=== PATIENT | male | born 1965 | race Caucasian/White ===

== ENCOUNTER 2021-09-11 23:55 | Inpatient (IN) | payer MEDICAID, SELFPAY ==
[2021-09-12] VITALS (18 sets, daily range): BP systolic 121–231; BP diastolic 71–106; PULSE 70–100; RESP 13–22; TEMP 36.4–36.6; O2SAT 92–100; BMI 38.3
--- NOTE | 2021-09-12 00:10 | ECG_ITS ---
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
--- NOTE | 2021-09-12 00:10 | XRR_ITS ---
PROCEDURE INFORMATION: Exam: XR Chest Exam date and time: 09/12/2021 12:10 AM Age: 55 years old Clinical indication: Sternal or substernal pain; Additional info: Cp TECHNIQUE: Imaging protocol: XR of the chest. Views: 1 view. COMPARISON: CR Chest 2 views* [id number] 05/24/2015 2:06 PM FINDINGS: Lungs: Lungs are clear. Pleural spaces: There is no pleural effusion or pneumothorax. Heart/Mediastinum: The cardiac silhouette is within normal limits of size given AP technique. Bones/joints: Bones are unremarkable. XR/XR chest 1V portable [id number] IMPRESSION: No acute findings.
[2021-09-12] MEDS: aspirin 81 mg Chew Tablet 324 MG PO (00:39)
[2021-09-12] MEDS: ondansetron 2 mg/ML SDV 2 mL 4 MG IVP ×2 (00:40→09:16)
[2021-09-12] MEDS: morphine 4 mg/mL SDV 1 mL IVP (00:47)
[2021-09-12 00:53] LABS: Basophils % 0.3 %; Eosinophils # 0.2 10^3/uL (0.0-0.8); Eosinophils % 1.8 %; Hematocrit 43.6 % (42.0-52.0); Hemoglobin 14.6 g/dL (11.7-16.6); Lymphocytes % 32.4 %; Mean Corpuscular HGB Conc 33.5 g/dL (30.0-36.0); Mean Corpuscular Hemoglobin 29.4 pg (28.0-34.0); Mean Corpuscular Volume 87.7 fl (80-94); Monocytes # 0.9 10^3/uL (0.2-0.9); Monocytes % 9.3 %; Neutrophils # 5.23 10^3/uL (1.8-7.7); Neutrophils % 55.9 %; Nucleated Red Blood Cells % 0 %; Platelet Count 181 10^3/cmm (130-400); Red Blood Count 4.97 10^6/uL (4.1-5.3); Red Cell Distribution Width 12.2 % (12.1-15.1); White Blood Count 9.4 10^3/uL (4.0-10.0)
[2021-09-12] MEDS: nitroglycerin 0.4 mg sublingual Tablet SUBLINGUAL ×4 (00:56→19:25)
[2021-09-12 01:10] LABS: INR 0.92 (0.8-1.2)
[2021-09-12 01:11] LABS: Partial Thromboplastin Time 24.5 SECONDS (23.9-36.7)
[2021-09-12 01:17] LABS: Troponin(5th) Baseline 23 ng/L (0-15)
[2021-09-12 01:27] LABS: Alanine Aminotransferase 32 U/L (0-41); Albumin Level 4.5 g/dL (3.5-5.2); Alkaline Phosphatase 74 IU/L (40-130); Aspartate Amino Transferase 22 U/L (0-40); Blood Urea Nitrogen 13 mg/dL (6-20); Calcium 9.1 mg/dL (8.5-10.5); Carbon Dioxide 21 mmol/L (22-29); Chloride 98 mmol/L (98-107); Creatine Phosphokinase 208 U/L (39-308); Globulin 2.5 g/dL (1.3-4.6); Glomerular Filtration Rate 100.7 mL/min (90-130); Glucose 209 mg/dL (65-115); NT Pro B Type Natriuretic Pept 21 pg/mL (0-125); Osmolality Calculated 286 mOsm/kg (285-295); Sodium 135 mmol/L (136-145); Total Bilirubin 0.2 mg/dL (0.15-1.2)
--- NOTE | 2021-09-12 02:10 | ECG_ITS ---
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
--- NOTE | 2021-09-12 02:32 | ED_ITS ---
HPI - Chest Pain General: Chief Complaint: Chest Pain Stated Complaint: High Blood Pressure\Zoning Out Time Seen by Provider: 09/12/21 00:09 History of Present Illness: HPI narrative: 55-year-old gentleman with hypertension. He states that he has had chest pain radiating to his jaws on and off for a couple of days. His blood pressure has been high. He has been trying to manage by taking his blood pressure medication somewhat early which seems to help the pain to some degree. He denies fever. He denies significant shortness of breath. No vomiting. No cough. MD complaint: chest pain Pertinent past history: other Onset (ago): day(s) Timing of current episode: episodic Prior episodes: Yes Onset: during rest Pain location: substernal Pain radiation: jaw/teeth Quality: tightness and aching Exacerbating factors: nothing Associated symptoms: Deny abdominal pain, diaphoresis, dyspnea, fever(s), leg edema, palpitations or vomiting Treatment prior to arrival: other Review of Systems Const: Denies: fever(s) or diaphoresis Eyes: Denies: change in vision Card: Reports: chest pain; Denies: palpitations Resp: Denies: dyspnea GI: Denies: abdominal pain or vomiting Neuro: Denies: headache(s) or confusion PFSH ED PFSH: Medical History Essential (primary) hypertension Family History Mother Dementia Grandfather Dementia Cancer Father Heart disease Social History Smoking and tobacco status: never smoked Alcohol intake: former Adopted: No service: No History of recent travel: No Current gender identity: Male Physical Exam Const: COMMON NORMALS: no acute distress, patient oriented x3 and alert GENERAL APPEARANCE: not ill appearing HENMT: COMMON NORMALS: normocephalic HEAD & SCALP: normocephalic Eye: COMMON NORMALS: Equal, round and reactive pupils present and EOMs intact bilaterally PUPIL: Yes Equal, round and reactive pupils present Chest: COMMONS NORMALS: normal inspection of the chest Resp: COMMON NORMALS: normal respiratory effort, No use of accessory muscles and clear to auscultation bilaterally AUSCULTATION: clear to auscultation bilaterally Cardio: COMMON NORMALS: regular rate, regular rhythm and No murmurs present (Cardio) RATE: regular rate RHYTHM: regular rhythm GI: COMMON NORMALS: Normal to inspection, nondistended, normoactive bowel sounds present, Soft to palpation and non-tender PALPATION: Yes Soft to palpation Neuro: COMMON NORMALS: patient oriented x3 SENSORIUM/ORIENTATION: Yes alert Course Consultations: Consultation #1: [email or web address] Time: 03:37 Vital Signs: Vital signs: Vital Signs Pulse Rate 76 09/12/21 03:40 Respiratory Rate 14 09/12/21 03:40 Blood Pressure 155/97 09/12/21 03:40 Pulse Oximetry 95 09/12/21 03:40 MDM - Chest Pain MDM Narrative: Medical decision making narrative: EKG shows a normal sinus rhythm with normal axis. Rate is 80. Normal intervals no ST changes. Chest x- ray is negative. Hemoglobin 14.6. White blood cell count 9.4. His initial blood pressure was 220s systolic. He was given nitroglycerin, which both improved his pain, to essentially resolution, and lowered his blood pressure. He was also given amlodipine. His blood pressure currently is 154/96. First troponin is mildly elevated awaiting a second. Second troponin is elevated as well. Delta is 29. He will be observed for he remained stable. Lab Data: Labs: Lab Results 09/12/21 09/12/21 09/12/21 00:40 00:40 00:40 WBC 9.4 10^3/uL 10^3/ uL (4.0-10.0) RBC 4.97 10^6/uL 10^6 /uL (4.1-5.3) Hgb 14.6 g/dL g/dL (11.7-16.6) Hct 43.6 % % (42.0-52.0) MCV 87.7 fl fl (80-94) MCH 29.4 pg pg (28.0-34.0) MCHC 33.5 g/dL g/dL (30.0-36.0) RDW 12.2 % % (12.1-15.1) Plt Count 181 10^3/cmm 10^3 /cmm (130-400) MPV 11.0 fL H fL (7.4-10.4) Neut % (Auto) 55.9 % % Lymph % (Auto) 32.4 % % [place] % (Auto) 9.3 % % Eos % (Auto) 1.8 % % Baso % (Auto) 0.3 % % Neut # (Auto) 5.23 10^3/uL 10^3 /uL (1.8-7.7) Lymph # (Auto) 3.0 10^3/uL 10^3/ uL (0.8-4.8) [place] # (Auto) 0.9 10^3/uL 10^3/ uL (0.2-0.9) Eos # (Auto) 0.2 10^3/uL 10^3/ uL (0.0-0.8) Baso # (Auto) 0.0 10^3/uL 10^3/ uL (0.0-0.1) Nucleated RBC % (a uto) 0 % % Nucleated RBCs # 0.0 /100WBC /100W BC PT INR APTT Sodium 135 mmol/L L mmol /L (136-145) Potassium 4.0 mmol/L mmol/L (3.5-5.1) Chloride 98 mmol/L mmol/L (98-107) Carbon Dioxide 21 mmol/L L mmol/ L (22-29) Anion Gap 20.0 H (5-19) BUN 13 mg/dL mg/dL (6-20) Creatinine 0.8 mg/dL mg/dL (0.7-1.2) GFR Calculation 100.7 mL/min mL/m in (90-130) Glucose 209 mg/dL H mg/dL (65-115) Calculated Osmolal ity 286 mOsm/kg mOsm/ kg (285-295) Calcium 9.1 mg/dL mg/dL (8.5-10.5) Total Bilirubin 0.2 mg/dL mg/dL (0.15-1.2) AST 22 U/L U/L (0-40) ALT 32 U/L U/L (0-41) Alkaline Phosphata se 74 IU/L IU/L (40-130) Creatine Kinase 208 U/L U/L (39-308) Troponin T Baselin e 23 ng/L H ng/L (0-15) Troponin T 120 Min [place] Delta Troponin T NT-Pro-B Natriuret Pep 21 pg/mL pg/mL (0-125) Total Protein 7.0 g/dL g/dL (6.6-8.7) Albumin 4.5 g/dL g/dL (3.5-5.2) Globulin 2.5 g/dL g/dL (1.3-4.6) 09/12/21 09/12/21 00:55 02:47 WBC RBC Hgb Hct MCV MCH MCHC RDW Plt Count MPV Neut % (Auto) Lymph % (Auto) [place] % (Auto) Eos % (Auto) Baso % (Auto) Neut # (Auto) Lymph # (Auto) [place] # (Auto) Eos # (Auto) Baso # (Auto) Nucleated RBC % (a uto) Nucleated RBCs # PT 12.60 SECONDS SEC ONDS (12.1-14.9) INR 0.92 (0.8-1.2) APTT 24.5 SECONDS SECO NDS (23.9-36.7) Sodium Potassium Chloride Carbon Dioxide Anion Gap BUN Creatinine GFR Calculation Glucose Calculated Osmolal ity Calcium Total Bilirubin AST ALT Alkaline Phosphata se Creatine Kinase Troponin T Baselin e Troponin T 120 Min [place] 52.67 ng/L H ng/L (0-15) Delta Troponin T 29.67 ABS# H* ABS # (0-10) NT-Pro-B Natriuret Pep Total Protein Albumin Globulin Discharge Plan Discharge Patient Disposition: Placed in Observation Admit Provider: Zainab Jessica Clinical Impression: Non-ST elevated myocardial infarction (non-STEMI) Chest pain Qualifiers: Chest pain type: unspecified Qualified Code(s): R07.9 - Chest pain, unspecified Coding Level of Care Code ED Wet Silk Hanger for g Fwd Exam Detailed
[2021-09-12] MEDS: amlodipine 10 mg Tablet PO (02:48)
[2021-09-12 03:15] LABS: Troponin 5 2HR 52.67 ng/L (0-15)
[2021-09-12 03:18] LABS: Troponin 5 2HR Delta 29.67 ABS# (0-10)
[2021-09-12] MEDS: nitroglycerin 1 gm/inch oint Pkt 2 INCH TOPICAL (03:59)
[2021-09-12] MEDS: clopidogrel 300 mg Tablet PO (04:22)
[2021-09-12] MEDS: enoxaparin 100 mg/mL Syringe SUBCUT (04:22)
--- NOTE | 2021-09-12 05:20 | USCV_ITS ---
Miguelito Crespo Age: 55 Gender: M : 1965 Exam Date: 09/12/2021 06:44 Ordering Phys: Zainab Jessica MD Technologist: [place] [facility] [place]: nstemi BP: 123 / 61 HR: 70 Rhythm: Sinus Technical Quality: Adequate MEASUREMENTS (Male / Female) Normal Values 2D ECHO LV Diastolic Diameter PLAX 4.4 cm 4.2 - 5.9 / 3.9 - 5.3 cm LV Systolic Diameter PLAX 2.5 cm IVS Diastolic Thickness 1.1 cm 0.6 - 1.0 / 0.6 - 0.9 cm IVS Systolic Thickness 1.7 cm LVPW Diastolic Thickness 1.5 cm 0.6 - 1.0 / 0.6 - 0.9 cm LVPW Systolic Thickness 1.8 cm LVOT Diameter 2.0 cm LV Ejection Fraction 2D Teich 75.1 % LV Ejection Fraction MOD 2C 66.0 % LV Ejection Fraction 2C AL 65.9 % LA Diameter 4.2 cm LA Width 4.5 cm LA Height 4.9 cm RA Width 3.5 cm RA Height 5.1 cm M-MODE Aortic Annulus Diameter 3.2 cm LA Ao Ratio MM 1.4 MV E Point Septal Separation 0.8 cm DOPPLER AV Peak Velocity 144.0 cm/s LVOT Peak Velocity 115.0 cm/s AV Area Cont Eq vti 2.5 cm squared AV Area Cont Eq pk 2.5 cm squared MV Area PHT 5.0 cm squared Mitral E to A Ratio 0.9 MV E' Velocity 33.5 cm/s Mitral E to MV E' Ratio 8.0 Mitral E to LV E' Lateral Ratio 7.1 Mitral E to LV E' Septal Ratio 9.1 TR Peak Velocity 189.0 cm/s TR Peak Gradient 14.3 mmHg TV Peak E Velocity 101.0 cm/s Right Atrial Pressure 3.0 mmHg Pulmonary Artery Systolic Pressu 17.3 mmHg FINDINGS Left Ventricle Normal left ventricular cavity size. Normal left ventricular wall thickness. Normal left ventricular systolic function. Left ventricular ejection fraction is estimated at 55 %. Mild hypokinesis of basal inferolateral and basal to mid anterolateral and apical lateral multani. Normal diastolic function. Right Ventricle Normal right ventricular size and systolic function, RVSP 17.3 mmHg. Right Atrium Normal right atrial size. Left Atrium Normal left atrial size. Mitral Valve Mildly thickened mitral valve. No mitral valve stenosis. Mild mitral valve regurgitation. Aortic Valve Structurally normal trileaflet aortic valve. No aortic valve stenosis. No aortic valve regurgitation. Tricuspid Valve Structurally normal tricuspid valve. No tricuspid valve stenosis. Trace tricuspid valve regurgitation. Pulmonic Valve Pulmonic valve not well visualized. No pulmonary valve stenosis. Trace pulmonary valve regurgitation. Pericardium No pericardial effusion. Aorta Normal-sized aortic root. Normal-sized inferior vena cava. CONCLUSIONS 1. Normal left ventricular cavity size. Normal left ventricular wall thickness. Normal left ventricular systolic function. Left ventricular ejection fraction is estimated at 55 %. Mild hypokinesis of basal inferolateral and basal to mid anterolateral and apical lateral multani. Normal diastolic function. 2. Normal pulmonary artery pressure. 3. Mild mitral valve regurgitation. 4. No prior similar studies to compare. Germaine Parekh MD (Electronically Signed) Final Date: 12 September 2021 11:57 S
[2021-09-12 05:56] LABS: Chol HDL Ratio 6.59 mg/dL (1.0-5.00); Cholesterol 270 mg/dL (0-200); HDL Cholesterol 41 mg/dL (60-100); Triglycerides 553 mg/dL (0-150)
[2021-09-12 06:05] LABS: Estmated Average Glucose 169; Hemoglobin A1C 7.5 % (4.0-6.0)
[2021-09-12 06:12] LABS: LDL Cholesterol Direct 145 mg/dL (0-100)
--- NOTE | 2021-09-12 06:46 | P.HP_ITS ---
Providers/Chief Complaint Admitting Physician: Zainab Jessica MD Chief Complaint: High Blood Pressure\Zoning Out History of Present Illness Miguelito Crespo is a 55 year old male with a past medical history of hypertension, states it is been uncontrolled on occasions of stress in the past. Presenting today with chief complaints of chest pain. Patient states that he has been experiencing chest discomfort radiating into the right side of his jaw and teeth going back at least for about a month now. Usually symptoms would come on when exerting such as climbing up stairs etc. It would also be associated with dyspnea. However stopping and resting would take care of the symptoms. Presents to the ER today as he developed similar symptoms last night with chest pain in the center and right side of his chest radiating into his j aw. When pain did not subside he presented into the ER. Currently had a nitro patch on following which his pain was relieved. Blood pressure upon admission was additionally 230 systolic, received amlodipine 10 mg after which at the time of my assessment blood pressure is 160/70 mmHg. He takes lisinopril at home and has been compliant with his medications. He is unaware if he has ever been scr eened for diabetes or dyslipidemia. EKG today is with sinus rhythm at [address]-T wave changes. Baseline troponin elevated at 23, 2-hour delta at 29.6. Chest x-ray clear. Denies any recent URI symptoms. Unvaccinated for COVID-19. Review of Systems General: Reports: 10 or more systems reviewed and unremarkable except in HPI and below Const: Denies: fever(s), chills or body aches Eyes: Denies: change in vision, blurry vision or photophobia ENMT: Reports: hoarseness; Denies: throat pain, enlarged tonsils, odynophagia or nasal congestion Card: Denies: chest pain, palpitations, irregular heart rhythm, edema, swelling of feet/ankles, lightheadedness, pre-syncope, dyspnea on exertion or orthopnea Resp: Denies: dyspnea, productive cough, non-productive cough, wheezing, stridor, pain on inspiration, change in phlegm color, hemoptysis or chest congestion GI: Denies: abdominal pain, nausea, vomiting, hematemesis, coffee ground emesis, dysphagia, heartburn, diarrhea, constipation, GI cramping, change in stool character, hematochezia or melena : Denies: flank pain, dysuria, urinary frequency, urinary urgency, urinary hesitancy or hematuria Musc: Denies: neck pain, back pain, extremity pain, joint swelling, joint warmth or deformity Neuro: Denies: headache(s), numbness in extremities, weakness in extremities, sensory changes, difficulty walking, frequent falls, dizziness, vertigo, behavioral changes, Slurred speech present or seizure-like activity Psych: Denies: anxiety, depression, suicidal ideation or homicidal ideation Endo: Denies: polyuria, polydipsia, tired all the time, cold intolerance or hot flashes Idris/Lymph: Denies: easy bruising or easy bleeding Medications/Allergies Home Medications Medication Instructions Recorded Confirmed Last Taken Type melatonin 5 mg capsule mg PO .at bedtime cap 10/25/20 04/25/21 Unknown History meloxicam 15 mg tablet 15 mg PO DAILY #90 tab 10/25/20 04/25/21 Unknown Rx montelukast 10 mg tablet 10 mg PO DAILY #90 tab 10/25/20 04/25/21 Unknown Rx multivitamin,ta-zxwl-nivrifka 1 tab PO DAILY 10/25/20 04/25/21 Unknown History omeprazole 20 mg tablet,delayed 20 mg PO DAILY #90 tab 10/25/20 04/25/21 Unknown Rx release triamcinolone acetonide 0.5 % 1 applic TOPICAL DAILY #15 g 10/25/20 04/25/21 Unknown Rx topical cream lisinopril 20 mg tablet 40 mg PO DAILY #180 tab 04/25/21 04/25/21 Unknown Rx Allergies Allergy/AdvReac Type Severity Reaction Status Date / Time Penicillins Allergy Unknown Verified 04/25/21 12:57 PFSH Acute PFSH: Medical History (Updated 09/12/21 @ 06:50 by Zainab Jessica MD) Essential (primary) hypertension Hepatitis C Surgical History (Updated 09/12/21 @ 06:50 by Zainab Jessica MD) H/O vasectomy History of cholecystectomy Family History Mother Dementia Grandfather Dementia Cancer Father Heart disease Social History Smoking and tobacco status: never smoked Alcohol intake: former Adopted: No service: No History of recent travel: No Current gender identity: Male Vitals/I&O/Wt Last Vital Signs Pulse 76 09/12/21 03:40 Resp 14 09/12/21 03:40 BP 155/97 09/12/21 03:40 Pulse Ox 95 09/12/21 03:40 Weight last 48 hrs Weight 111.13 kg Physical Exam Narrative: EXAM NARRATIVE: General: No acute distress, AO x3 HEENT: PERRLA, pupils bilaterally equal and reactive, pallors not present Chest: Normal vesicular breath sounds, no added sounds, equal good air entry bilaterally CVS: S1-S2 regular, no murmurs, no tachycardia, no gallops, no rubs Abdomen: Soft, nontender, no organomegaly, bowel sounds present Neuro: No focal deficits, no facial deformity, AO x3, power 5/5 in all limbs Extremities: No edema clubbing or cyanosis Data : 09/12/21 00:40 09/12/21 00:40 A&P Assessment and plan (1) Chest pain: Status: Acute Qualifiers: Chest pain type: unspecified Qualified Code(s): R07.9 - Chest pain, unspecified (2) Non-ST elevated myocardial infarction (non-STEMI): Status: Acute (3) Essential (primary) hypertension: Status: Acute Additional A&P Information Presenting today with chest pain radiating into jaw EKG without acute ST-T wave changes, elevated troponin baseline at 23, 2-hour delta at 29.67. Overall picture concerning for NSTEMI. Awaiting 6-hour troponin at this time. Alternately troponin elevation may be related to high blood pressure upon arrival Systolic blood pressure 230 upon admission, currently has a nitro patch on along with having received amlodipine 10 mg following which currently systolic blood pressure is ranging between 1 50-1 60. Chest pain is relieved after placement of Nitropatch at this time. He has received 1 mg/kg dose of Lovenox x1 for NSTEMI currently, will continue if troponin continues to trend up. Add on HbA1c and lipid panel testing to labs already obtained. Further orders based on 6-hour troponin trend and above pending labs. Obtain echocardiogram. Attestations Medical Necessity Statement*: Observation admission, currently anticipate less than 2 midnight stay Coding Level of Care Code Acute Park Maintainer for [facility] Diagnoses Chest pain R07.9 Chest pain type: unspecified Non-ST elevated myocardial infarction (non-STEMI) I21.4 Essential (primary) hypertension I10
[2021-09-12 08:01] LABS: Troponin 5 6HR 135.3 ng/L (0-15); Troponin 5 6HR Delta 112.3 ng/L (0-12)
--- NOTE | 2021-09-12 08:59 | P.PN_ITS ---
Subjective Subjective: Interval history: Miguelito is a 55-year-old white male who gave history of chest discomfort, occasionally exertional over the last month with worsening to where he came into the emergency department secondary to persistent discomfort this morning. See history and physical done earlier. This was reviewed. Medications: Reviewed: Yes Vitals/I&O/Wt Last Vital Signs Temp 97.5 F L 09/12/21 08:00 Pulse 82 09/12/21 08:00 Resp 17 09/12/21 08:00 BP 148/99 09/12/21 08:00 Pulse Ox 96 09/12/21 08:35 Weight last 48 hrs Weight 111.13 kg Physical Exam Narrative: EXAM NARRATIVE: General exam no distress mild chest discomfort substernal, described as an ache chest without radiation Neck supple no lymphadenopathy thyromegaly Cardiovascular regular rate and rhythm without murmur Lungs clear no wheezing or crackles Abdomen soft obese nontender Extremities no cyanosis clubbing or edema Data : 09/12/21 00:40 09/12/21 00:40 A&P Assessment and plan (1) Chest pain: Concerning for non-ST elevation myocardial infarction considering significant delta troponin, 6-hour delta troponin of 112 Patient has had recurrent discomfort. He is receiving some morphine and nitroglycerin now Continue nitroglycerin paste Consider nitroglycerin drip if discomfort continues he has received aspirin. Statin as ordered. Provide full dose Lovenox Echocardiogram Cardiology consult Consideration of loading with Plavix Check TSH N.p.o. currently in case pain continues and procedure as needed. Status: Acute Qualifiers: Chest pain type: unspecified Qualified Code(s): R07.9 - Chest pain, unspecified (2) Non-ST elevated myocardial infarction (non-STEMI): See above Status: Acute (3) Essential (primary) hypertension: Continue IVONNE inhibitor Consider addition of beta-bruno, low-dose. Will not add acutely as nitroglycerin drip may be needed. Blood pressure is reasonable currently. Note that he received a dose of Norvasc in the emergency department as well. Status: Acute Additional A&P Information Hyperglycemia. Hemoglobin A1c consistent with diabetes. Will need to consistent carb diet when 1 is started. Start mild sliding scale insulin. Attestations Medical Necessity Statement*: Needs continued monitoring in the hospital secondary to recurrent chest discomfort, elevated troponin. Coding Level of Care Code Acute Conservation Science Officer for Chg Fwd Diagnoses Chest pain R07.9 Chest pain type: unspecified Non-ST elevated myocardial infarction (non-STEMI) I21.4 Essential (primary) hypertension I10
--- NOTE | 2021-09-12 09:03 | PC.CHAP ---
Pastoral Care Encounter/Spiritual Assessment Type of Contact [] Declined copyright expert visit [] Patient/Family/Request visit [] Outpatient visit [] Follow-up visit [] Physician referral [] Code/Alert [x] Routine visit [] Staff referral [] Actively dying [] Patient sleeping [] Family support [] [] Out of room [] Palliative care [] [] Receiving care in room [] Pre-surgical visit [] Trauma [] Long length of stay [] ICU visit [] Other: Relational/Emotional Strength [] Patient feels connected with others/family/visitors/staff [] Distress [] Loneliness/isolation [] Abandonment Spirituality of Patient [] Person of Odette [] Attends Druze of their Odette [] Believes in Prayer [] Reads Bible or Baptist materials [] There are Spiritual issues to be addressed Soakers Supervisor Interventions [x] Prayer [x] Active listening [x] Non-anxious presence [x] Spiritual/emotional support [] Crisis/trauma care [] Spiritual counseling [] Bereavement support [] Provided bereavement packet [] Provided Bible/devotional materials [] Provided toy/stuffed animal, coloring book to patient or family member [] Provided Communion [] Anointing/[place] [] Salvation [x] Completed spiritual assessment [] Other: Impact on Illness or Injury [] Angry [] Fearful [] Anxious [] Often cries [] Exhaustion [] Unable to work [] Unable to attend mu-ism [] Unable to walk/stand [] Unable to read [] Unable to drive [] Unable to eat/drink [] Unable to sleep [] Unable to be with family [] Patient intubated [] Other: Summary patient wanting to sleep... tired Time spent with patient 5 min
[2021-09-12] MEDS: lisinopril 20 mg Tablet 40 MG PO (09:04)
[2021-09-12] MEDS: morphine 4 mg/mL SDV 1 mL 2 MG IVP ×2 (09:04→19:43)
[2021-09-12] MEDS: pantoprazole DR 40 mg Tablet PO (09:04)
--- NOTE | 2021-09-12 09:18 | ECG_ITS ---
[facility] Test Date: 2021-09-12 Pat Name: Miguelito Crespo Department: Room: 101 Gender: Male Paper Pattern Folder: : 1965 Requested By: Dm Hill Order Number: [id number] Mansi MD: CHRIS VIZCAINO Measurements Intervals [place] Rate: 65 P: 23 SC: 143 QRS: 10 QRSD: 105 T: 43 QT: 367 QTc: 382 Interpretive Statements SINUS RHYTHM INCOMPLETE RIGHT BUNDLE BRANCH BLOCK [90+ ms QRS DURATION, TERMINAL R IN V1/V2, 40+ ms S IN I/aVL/V4/V5/V6] Compared to ECG 09/12/2021 02:35:07 Incomplete right bundle-branch block now present Electronically Signed On 09-12-2021 19:04:47 BAR POINTER by CHRIS VIZCAINO [id number]
[2021-09-12 09:22] LABS: Thyroid Stimulating Hormone 3.78 uIU/mL (0.27-4.20)
--- NOTE | 2021-09-12 10:43 | P.CONIM_ITS ---
Providers/Reason For Consult Consulting Physician/Specialty*: Dr. Parekh, Cardiology Reason for Consult*: NSTEMI Attending Physician: Dm Lowery MD History of Present Illness History of Present Illness Miguelito Crespo is a 55 year old male with past medical history of hypertension, hepatitis C, tobacco abuse (chews 2 to 3 cans/week) and family history of coronary artery disease in father (PA in his 50s and history of bypass in his 70s). He presented with chest discomfort and on and off for last few days. Last night chest discomfort was retrosternal in location 10 and 10 in intensity and did not get relieved after taking aspirin lisinopril and Xanax that he uses as needed. He checked his blood pressure at home and it was running systolically over 200s. He complains of radiation of pain to his bilateral jaws denies any associated shortness of breath diaphoresis nausea or vomiting. He had a stress test several years ago. He received aspirin Plavix and therapeutic Lovenox x1 in the ER. His baseline troponin T increased from 23-1 35 at 6 hours. EKG showed sinus rhythm with normal axis and no significant ST-T wave changes on subsequent EKGs. Blood pressure at the time of evaluation is in normal range and patient is chest pain-free. Review of Systems 2 General: Reports: 10 or more systems reviewed and unremarkable except in HPI and below Const: Denies: fever(s), chills or body aches Eyes: Denies: change in vision, blurry vision or photophobia ENMT: Reports: hoarseness; Denies: throat pain, enlarged tonsils, odynophagia or nasal congestion Card: Denies: chest pain, palpitations, irregular heart rhythm, edema, swelling of feet/ankles, lightheadedness, pre-syncope, dyspnea on exertion or orthopnea Resp: Denies: dyspnea, productive cough, non-productive cough, wheezing, stridor, pain on inspiration, change in phlegm color, hemoptysis or chest congestion GI: Denies: abdominal pain, nausea, vomiting, hematemesis, coffee ground emesis, dysphagia, heartburn, diarrhea, constipation, GI cramping, change in stool character, hematochezia or melena : Denies: flank pain, dysuria, urinary frequency, urinary urgency, urinary hesitancy or hematuria Musc: Denies: neck pain, back pain, extremity pain, joint swelling, joint warmth or deformity Neuro: Denies: headache(s), numbness in extremities, weakness in extremities, sensory changes, difficulty walking, frequent falls, dizziness, vertigo, behavioral changes, Slurred speech present or seizure-like activity Psych: Denies: anxiety, depression, suicidal ideation or homicidal ideation Endo: Denies: polyuria, polydipsia, tired all the time, cold intolerance or hot flashes Idris/Lymph: Denies: easy bruising or easy bleeding Meds/Allergies Home Medications and Allergies Home Medications Medication Instructions Recorded Confirmed Last Taken Type melatonin 5 mg capsule 5 mg PO BEDTIME cap 10/25/20 09/12/21 Unknown History meloxicam 15 mg tablet 15 mg PO DAILY #90 tab 10/25/20 09/12/21 Unknown Rx acetaminophen [Tylenol Arthritis 650 mg PO Q12H PRN 09/12/21 09/12/21 Unknown History Pain] albuterol sulfate [ProAir HFA] 2 puff INHALATION QID PRN 09/12/21 09/12/21 Unknown History aspirin 325 mg PO PRN PRN 09/12/21 09/12/21 09/11/21 History glucosamine sulfate [Glucosamine] 500 mg PO DAILY 09/12/21 09/12/21 Unknown History lisinopril 40 mg PO BEDTIME 09/12/21 09/12/21 Unknown History lorazepam [Ativan] 0.5 mg PO DAILY PRN 09/12/21 09/12/21 Unknown History magnesium oxide 400 mg PO DAILY 09/12/21 09/12/21 Unknown History montelukast 10 mg PO QAM 09/12/21 09/12/21 Unknown History multivitamin 1 tab PO QAM 09/12/21 09/12/21 Unknown History omeprazole 20 mg PO QAM 09/12/21 09/12/21 Unknown History triamcinolone acetonide 1 applic TOPICAL DAILY PRN 09/12/21 09/12/21 Unknown History turmeric 400 mg PO DAILY 09/12/21 09/12/21 Unknown History Allergies Allergy/AdvReac Type Severity Reaction Status Date / Time Penicillins Allergy Unknown Verified 09/12/21 07:47 Current Medications Current Medications Generic Name Dose Route Start Last Admin Trade Name Freq PRN Reason Stop Dose Admin Aspirin 81 mg 09/12/21 09:00 09/12/21 10:31 Aspirin 81 Mg Ec Tablet PO Not Given DAILY YUDY Lisinopril 40 mg 09/12/21 09:00 09/12/21 09:04 Lisinopril 20 Mg Tablet PO 40 mg DAILY YUDY Administration Morphine Sulfate 2 mg 09/12/21 05:20 09/12/21 09:04 Morphine 4 Mg/Ml Sdv 1 Ml IVP 2 mg Q4H PRN Administration SEVERE PAIN Nitroglycerin 0.4 mg 09/12/21 00:10 09/12/21 09:04 Nitroglycerin 0.4 Mg Sublingual Tablet SUBLINGUAL 0.4 mg Q5M PRN Administration CHEST PAIN Ondansetron HCl 4 mg 09/12/21 05:20 09/12/21 09:16 Ondansetron 2 Mg/Ml Sdv 2 Ml IVP 4 mg Q8H PRN Administration vomiting, or N/V if npo Pantoprazole Sodium 40 mg 09/12/21 09:00 09/12/21 09:[address] 40 Mg Tablet PO 40 mg DAILY YUDY Administration PFSH Acute PFSH: Medical History Essential (primary) hypertension Hepatitis C Surgical History H/O vasectomy History of cholecystectomy Family History Mother Dementia Grandfather Dementia Cancer Father Heart disease Social History Smoking and tobacco status: never smoked Alcohol intake: former Adopted: No service: No History of recent travel: No Current gender identity: Male Vitals/I&O/Wt Last Vital Signs Temp 97.5 F L 09/12/21 08:00 Pulse 82 09/12/21 08:00 Resp 17 09/12/21 08:00 BP 148/99 09/12/21 08:00 Pulse Ox 96 09/12/21 08:35 Weight last 48 hrs Weight 245 lb Physical Exam Narrative: EXAM NARRATIVE: GENERAL: This man sitting in bed in no acute distress HEENT: Extraocular movement intact. Pupils equal round reactive to light. No pallor or icterus. NECK: central trachea, no JVD appreciated. No carotid bruit. CARDIOVASCULAR SYSTEM: S1-S2 regular. No murmur rubs or gallops. RESPIRATORY SYSTEM: Chest clear to auscultation. No wheezes rhonchi or rubs heard. No use of accessory muscles. ABDOMEN: Soft, obese, nontender. Normal bowel sounds present. EXTREMITIES: No cyanosis or clubbing. No edema. No signs of chronic venous insufficiency. CASE MAKER: Patient is alert oriented ?3. No focal neurological deficits. SKIN: Normal turgor and temperature. PSYCH: Normal insight and judgment. A&P Assessment and plan (1) Non-ST elevated myocardial infarction (non-STEMI): No EKG changes. troponins increased from 23 to 135 at 6 hr. Chest pain typical for angina. -Echo prelim review with some hypokinesis in anterolateral wall. -Recommend cardiac cath. Risks and benefits were discussed with the patients. Possible complications of bleeding, heart attack, stroke, and urgent/emergent CABG discussed with the patient and his . Plan is to proceed for the procedure tomorrow. -continue ASA, plavix, statin and lovenox. Status: Acute (2) Essential (primary) hypertension: Bp fairly controlled Status: Acute (3) Tobacco abuse: Status: Acute (4) Family history of coronary artery disease: Status: Acute Additional A&P Information Obesity Thank you for allowing me to participate in patient's care. Please feel free to call with questions or concerns. Coding Level of Care Code Acute Discharge Planner for Dolores Fwmaria alejandra Diagnoses Non-ST elevated myocardial infarction (non-STEMI) I21.4 Essential (primary) hypertension I10 Tobacco abuse Z72.0 Family history of coronary artery disease Z82.49
[2021-09-12 11:42] LABS: Glucose Point of Care 160 mg/dL (70-110)
[2021-09-12 13:33] LABS: Adenovirus Not Detected (NOT DETECT); Chlamydia Pneumoniae Not Detected (NOT DETECT); Coronavirus 229E,HKU1,NL63,OC4 Not Detected (NOT DETECT); Human Metapneumovirus Not Detected (NOT DETECT); Human Rhinovirus/Enterovirus Not Detected (NOT DETECT); Influenza A Not Detected (NOT DETECT); Influenza A H1 Not Detected (NOT DETECT); Influenza A H1-2009 Not Detected (NOT DETECT); Influenza A H3 Not Detected (NOT DETECT); Influenza B Not Detected (NOT DETECT); Mycoplasma Pneumoniae Not Detected (NOT DETECT); Parainfluenza Virus Type 1 Not Detected (NOT DETECT); Parainfluenza Virus Type 2 Not Detected (NOT DETECT); Parainfluenza Virus Type 3 Not Detected (NOT DETECT); Parainfluenza Virus Type 4 Not Detected (NOT DETECT); Respiratory Syncytial Virus A Not Detected (NOT DETECT); Respiratory Syncytial Virus B Not Detected (NOT DETECT); SARS-COV-2 Not Detected (NOT DETECT)
[2021-09-12 16:59] LABS: Glucose Point of Care 125 mg/dL (70-110)
[2021-09-12] MEDS: enoxaparin 120 mg/0.8 mL Syringe 110 MG SUBCUT (16:59)
[2021-09-12] MEDS: atorvastatin 40 mg Tablet 80 MG PO (19:45)
[2021-09-12] MEDS: metoprolol tartrate 25 mg Tablet 12.5 MG PO (19:45)
--- NOTE | 2021-09-12 19:57 | PC.NURSE ---
Shift Note 0800 Am- Received pt from ER. Pt reports of chest pain rated at 4/10 per pain scale. Nitro SL x1 given and Morphine IVP PRN, Zofran given PRN as ordered. Pt started to become diaphoretic, bradycardic w/ HR in 50s, BP 94/58. Doctors are notified. Post morphine and nitro, pt denies any chest pain. Frequent safety and comfort rounds continue. Orders and/or nursing care completed as indicated. Patient monitored for response to intervention and treatment(s). Education provided includes to notifiy nurse fo reoccurrence of chest pain, diabetes on sliding scale and accuchecks, plavix, aspirin, cardiology consult for left heart cath and elevated heart enzymes. Patient and/or entry level account representative verbalizes understanding. Will continue to monitor.
[2021-09-12 20:58] LABS: Glucose Point of Care 132 mg/dL (70-110)
[2021-09-12 20:58] LABS: Glucose Point of Care 226 mg/dL (70-110)
--- NOTE | 2021-09-12 21:20 | PC.NURSE ---
While receiving report on patient, Dr. Parekh called nurse's station, stating that patient was having chest pain and ordered to give SL nitro. Patient given SL nitro x2 and PRN Morphine. After each SL nitro, patient stated that his pain was a little bit better. Pain was gone after receiving Morphine. Please see vital signs and mar. VSS.
--- NOTE | 2021-09-12 21:28 | PC.NURSE ---
Patient refused Trazodone. Patient stated I don't understand why they have insulin on there for me when I haven't even been diagnosed with diabetes. Patient educated on elevated A1C level and elevated blood glucose levels.
[2021-09-13] VITALS (32 sets, daily range): BP systolic 114–153; BP diastolic 69–90; PULSE 85–101; RESP 16–28; TEMP 36.9; O2SAT 91–98
--- NOTE | 2021-09-13 03:32 | PC.NURSE ---
Verified with Dr. Parekh to give 0400 Lovenox.
[2021-09-13] MEDS: enoxaparin 120 mg/0.8 mL Syringe 110 MG SUBCUT ×2 (03:35→16:52)
[2021-09-13 04:08] LABS: Basophils % 0.3 %; Eosinophils # 0.1 10^3/uL (0.0-0.8); Eosinophils % 0.7 %; Hematocrit 44.6 % (42.0-52.0); Hemoglobin 14.4 g/dL (11.7-16.6); Lymphocytes # 2.6 10^3/uL (0.8-4.8); Lymphocytes % 18.9 %; Mean Corpuscular HGB Conc 32.3 g/dL (30.0-36.0); Mean Corpuscular Hemoglobin 29.6 pg (28.0-34.0); Mean Corpuscular Volume 91.6 fl (80-94); Mean Platelet Volume 11.1 fL (7.4-10.4); Monocytes # 1.4 10^3/uL (0.2-0.9); Monocytes % 10.6 %; Neutrophils # 9.42 10^3/uL (1.8-7.7); Neutrophils % 69.2 %; Nucleated Red Blood Cells % 0 %; Platelet Count 193 10^3/cmm (130-400); Red Blood Count 4.87 10^6/uL (4.1-5.3); Red Cell Distribution Width 12.7 % (12.1-15.1); White Blood Count 13.6 10^3/uL (4.0-10.0)
[2021-09-13 04:35] LABS: Alanine Aminotransferase 47 U/L (0-41); Albumin Level 4.2 g/dL (3.5-5.2); Alkaline Phosphatase 67 IU/L (40-130); Anion Gap 16.8 (5-19); Aspartate Amino Transferase 125 U/L (0-40); Blood Urea Nitrogen 11 mg/dL (6-20); Calcium 9.1 mg/dL (8.5-10.5); Carbon Dioxide 28 mmol/L (22-29); Chloride 99 mmol/L (98-107); Globulin 2.8 g/dL (1.3-4.6); Glomerular Filtration Rate 69.8 mL/min (90-130); Glucose 138 mg/dL (65-115); Osmolality Calculated 290 mOsm/kg (285-295); Potassium 4.8 mmol/L (3.5-5.1); Sodium 139 mmol/L (136-145); Total Bilirubin 0.3 mg/dL (0.15-1.2)
[2021-09-13] MEDS: diphenhydrAMINE 50 mg Capsule PO (06:13)
[2021-09-13] MEDS: acetaminophen 325 mg Tablet 650 MG PO (06:13)
[2021-09-13] MEDS: sodium chloride 0.9% 1,000 ML 50 ML IV (06:13)
[2021-09-13 07:02] LABS: Glucose Point of Care 161 mg/dL (70-110)
--- NOTE | 2021-09-13 07:30 | XACV_ITS ---
Exam Room: [facility] [place] Ht: 170 cm Wt: 111 kg BSA: 2.34 m2 Gender: Male : 1965 Any Known Allergies: Penicillins Exam Priority: Routine Procedure(s): Procedure Description: Diagnostic procedure Procedure Description: Coronary Angiography Diagnostic Cath Status: Urgent Diagnostic Findings * Left Main has no significant disease. * Proximal Right Coronary Artery: total occlusion, GAYATRI: 0 flow. SOLUTIONS OPERATOR with right to right and right to left collaterals to distal vessel. * Mid Circumflex: significant 80% stenosis, GAYATRI: 3 flow. OM 1 and 2 are small sized vessels. OM 3 has significant proximal stenosis. * INDICATION: Patient has presented with NSTEMI. * Proximal Left Anterior Descending: obstructive 70% stenosis, GAYATRI: 3 flow. * Mid Left Anterior Descending: obstructive 70% stenosis, GAYATRI: 3 flow. * Coronary angiography shows co-dominance. Conclusions 1. Severe multivessel [place] coronary artery disease 2. . 3. Proximal RCA has chronic total occlusion. 4. Mid left circumflex artery has severe 80% stenosis likely culprit for non-ST elevation SD. LAD has severe proximal and mid vessel stenosis.. Recommendations * Transfer back to [facility]. * Given patient's three-vessel coronary artery disease, new diagnosis of diabetes and SOLUTIONS OPERATOR of RCA, will recommend coronary artery bypass surgery. * Continue aspirin. Hold Plavix in anticipation of surgery. * Continue anticoagulation. Interventional RX Recommendation: CABG Diagnostic RX Recommendation: CABG Pressures Phase:Rest AO : 95 / 43 ( 57 ) @ 6:25:00 AM 124 / 81 ( 96 ) @ 6:36:00 AM Clinical Evaluation EBL: 5mL-10mL Procedural Details Procedure Consent Obtained. Pre-Procedure Time Out. Identified patient by full name and date of as verbalized by the patient/guarantor. Does the consent match the physician's order: Yes. Accurate & Complete Informed Consent: Yes. Inpatient/Outpatient History & Physical on Chart: Yes. If H&P is completed, is and addenduem needed: No; If yes, is the addendum complete: N/A. Visualize and Verify Site with Patient/Guarantor: N/A. Relevant Radiology Images available: N/A. Pre-op teaching completed and patient verbalized understanding. The risks, benefits, and alternatives of sedation and/or procedure were discussed by physician. The patient agrees to continue. Procedure started. [facility] Clinical Fraility Score: 3: Managing Well. Handbell Choir Director Indications: New Onset Angina. Chest Pain Symptom Assessment: Typical Angina Symptoms. Cardiovascular Instability: No. Correct patient, site and procedure confirmed by cath team. PERRLA. Strong, equal hand child care group leader bilaterally. Lungs clear x 5 lobes. IV Site on Arrival: 20 gauge in the left forearm. IV Fluids: 0.9% NaCl at KVO. 0 mL infused prior to medical laboratory manager. Pre Procedural Pulses: right radial was 3+. Pre Procedural Pulses: bilateral dorsalis pedis was Doppled. Pre Procedural Pulses: bilateral posterior tibial was Doppled. Oxygen started at 2liters/min via nasal canula. right groin was prepped with chloroprep then draped in the usual sterile fashion. right radial was prepped with chloroprep then draped in the usual sterile fashion. Baseline sample Acquired. HR: 91 BPM. Physician arrived. Equipment: 6F - Radial. Cardiac Cath Pack. ACIST Manifold Kit Model BT 2000. Heparinized Saline (2 units/mL), 1000 mL bag. Physician scrubbed in. Immediate Pre-Procedure Time Out. Correct Patient: Yes; Correct Procedure: Yes; Correct Site: Yes; Correct Patient Position: Yes; Correct Supplies: Yes; Dried Flammable Prep: Yes; Blood Products Available: N/A;. Lidocaine 1% infiltrated to the right radial. Arterial access obtained. A 5 austrian TIG catheter in over wire. Multiple views taken of right coronary artery. Catheter removed over the exchange wire. A 5 austrian JL3.5 catheter in over wire. Unable to engage the catheter. Catheter removed over the exchange wire. A 5 austrian JL4 catheter in over wire. Unable to engage the catheter. Catheter removed over the exchange wire. 6 austrian XB 3 guide catheter was inserted over the wire. Inventory is CRD 6FR XB 3 GUIDE. Multiple views taken of left coronary artery. Guide catheter out. A 5 austrian Angled Pig catheter in over wire. Catheter out. Physician scrubbed out. A TR Band was successful obtaining hemostatsis at the Right Radial artery insertion site. TR band placed. Hemostasis obtained. Post Procedure: Pulses reassessed and unchanged. PERRLA. Strong, equal hand child care group leader bilaterally. No VTE prophylaxis required. Contrast type used: Omnipaque 300 mg/mL, 150 mL bottle. Post-op diagnosis: severe multi vessel CAD. Complications: none. Medication's Wasted: Lidocaine 1% = 18 mg. Medication's Wasted: Nitro = 49.8 mg. Medication's Wasted: Heparin = 1000 units. Medication's Wasted: Other = versed 0.5 mg. Medication's Wasted: Other = fentanyl 25 mcg. Total IV fluids: 50 mL. Estimated blood loss: 5mL-10mL. Responsiveness - Normal response to verbal stimuli; alert and oriented, PERRLA. Airway - Unaffected, no intervention required; spontaneous ventilation. Circulation: W/N/L, pulses unchanged. Nausea/Vomiting: No. Procedure completed. Patient transferred by bed to 1st floor. Vital chart was stopped. Access Site Site: Right Radial artery Sheath Size: 6 Fr Hemostasis Method: TR Band Hemostasis Success: Successful Procedure Medications Start: 8:15 AM Stop: 8:15 AM Medication: Versed Amount: 1 mg Route: I.V. Start: 8:15 AM Stop: 8:15 AM Medication: Fentanyl Amount: 50 mcg Route: I.V. Start: 8:21 AM Stop: 8:21 AM Medication: Nitrogylcerin Amount: 200 mcg Route: I.A. Start: 8:33 AM Stop: 8:33 AM Medication: Versed Amount: 0.5 mg Route: I.V. Start: 8:33 AM Stop: 8:33 AM Medication: Fentanyl Amount: 25 mcg Route: I.V. I, the attending physician, have reviewed and verified all procedure medications. Yes, all medications given per verbal order History/Risk Factors Hypertension: Yes Dyslipidemia: No Peripheral Arterial Disease (PAD): No Myocardial Infarction (SD): No Obesity: Yes Renal Disease: No Tobacco Use: Never Prior Interventions PCI: No CABG: No Valve Surgery: No Report Signatures Finalized by Cristopher Leo MD on 09/13/2021 12:27 PM
--- NOTE | 2021-09-13 08:12 | W.PM.OPSUD ---
Surgery/Procedure H&P Update DATE OF PROCEDURE: September 13, 2021 DATE H&P PERFORMED: 09/12/21 H&P UPDATE INFORMATION: I have reviewed H&P completed within last 30 days, I have examined patient prior to procedure and No changes to prior documentation PREOP DIAGNOSIS: NSTEMI PRIMARY INDICATION FOR PROCEDURE: NSTEMI PLANNED PROCEDURE: Operation Date: 09/13/21 07:00 Proposed Procedures p Cardiac Catheterization(Left) - Cristopher Leo M.D Possible percutaneous coronary intervention PATIENT REASSESSED PRIOR TO SEDATION, WITH NO CHANGE NOTED: Yes PHYSICAL EXAM: alert, oriented x 3, clear to auscultation bilaterally and regular rate & rhythm AIRWAY EVAL/ANESTHESIA PLAN: ASA III, Monitored Anesthesia, Local Anesthesia, Risks, benefits & alternatives of sedation and/or procedure discussed and Patient agrees to continue as planned
[2021-09-13] MEDS: magnesium hydroxide 30 mL UDC PO (09:43)
[2021-09-13] MEDS: ondansetron 2 mg/ML SDV 2 mL 4 MG IVP (09:44)
[2021-09-13] MEDS: aspirin 325 mg Tablet PO (10:07)
[2021-09-13] MEDS: metoprolol tartrate 25 mg Tablet 12.5 MG PO (10:07)
--- NOTE | 2021-09-13 11:52 | PM.PN ---
Subjective Subjective: Interval history: Miguelito was seen today after his angiogram. He reported no chest discomfort. Three-vessel disease was found. It has been recommended he have bypass. Medications: Reviewed: Yes Vitals/I&O/Wt Last Vital Signs Temp 98 F 09/12/21 23:02 Pulse 90 09/13/21 04:23 Resp 16 09/13/21 03:39 BP 153/90 09/13/21 03:39 Pulse Ox 93 09/13/21 03:39 09/12/21 09/13/21 09/13/21 22:59 06:59 14:59 Intake Total 360 / 360 Balance 360 / 360 Weight last 48 hrs Weight 111.13 kg Physical Exam Narrative: EXAM NARRATIVE: General exam no distress currently Neck supple no lymphadenopathy thyromegaly Cardiovascular regular rate and rhythm without murmur Lungs clear no wheezing or crackles Abdomen soft obese nontender Extremities no cyanosis clubbing or edema. Right wrist angiogram site without significant hematoma. Band in place. Data : 09/13/21 03:19 09/13/21 03:19 A&P Assessment and plan (1) Chest pain: Concerning for non-ST elevation myocardial infarction considering significant delta troponin, 6-hour delta troponin of 112 Continue full dose Lovenox Echocardiogram demonstrated preserved ejection fraction, mild hypokinesis base and anterior lateral and apical lateral multani. Mild mitral regurgitation. Cardiology consult appreciated Angiogram demonstrated three-vessel disease, bypass recommended Further Plavix being held for anticipation of needed bypass surgery Continue aspirin, statin, beta-bruno TSH was checked and normal Status: Acute Qualifiers: Chest pain type: unspecified Qualified Code(s): R07.9 - Chest pain, unspecified (2) Non-ST elevated myocardial infarction (non-STEMI): See above Status: Acute (3) Essential (primary) hypertension: Continue IVONNE inhibitor Continue beta-bruno. Dose may need to be advanced Status: Acute Additional A&P Information Hyperglycemia. Hemoglobin A1c consistent with diabetes. Sliding scale insulin, consistent carb diet Attestations Medical Necessity Statement*: Needs continued hospitalization until definitive care for three-vessel coronary disease is arranged. Coding Level of Care Code Acute Archival Records Clerk for Dolores Huerta Diagnoses Chest pain R07.9 Chest pain type: unspecified Non-ST elevated myocardial infarction (non-STEMI) I21.4 Essential (primary) hypertension I10
--- NOTE | 2021-09-13 12:05 | PM.PN ---
Subjective Subjective: Interval history: Patient underwent LHC via right radial access today with Dr. Leo Medications: Reviewed: Yes Vitals/I&O/Wt Last Vital Signs Temp 98 F 09/12/21 23:02 Pulse 90 09/13/21 04:23 Resp 16 09/13/21 03:39 BP 153/90 09/13/21 03:39 Pulse Ox 93 09/13/21 03:39 09/12/21 09/13/21 09/13/21 22:59 06:59 14:59 Intake Total 360 / 360 Balance 360 / 360 Weight last 48 hrs Weight 245 lb Physical Exam Narrative: EXAM NARRATIVE: GENERAL: This man sitting in bed in no acute distress HEENT: Extraocular movement intact. Pupils equal round reactive to light. No pallor or icterus. NECK: central trachea, no JVD appreciated. No carotid bruit. CARDIOVASCULAR SYSTEM: S1-S2 regular. No murmur rubs or gallops. RESPIRATORY SYSTEM: Chest clear to auscultation. No wheezes rhonchi or rubs heard. No use of accessory muscles. ABDOMEN: Soft, obese, nontender. Normal bowel sounds present. EXTREMITIES: No cyanosis or clubbing. No edema. No signs of chronic venous insufficiency. right wrist TR band in place CLOTH SHRINKING MACHINE OPERATOR HELPER: Patient is alert oriented ?3. No focal neurological deficits. SKIN: Normal turgor and temperature. PSYCH: Normal insight and judgment. Data : 09/13/21 03:19 09/13/21 03:19 A&P Assessment and plan (1) Non-ST elevated myocardial infarction (non-STEMI): No EKG changes. troponins increased from 23 to 135 at 6 hr. Chest pain typical for angina. -Echo with hypokinesis in anterolateral and inferolateral multani and LVEF 50-55%. -Multivessel CAD on cardiac cath. Plan to transfer to [facility] for CABG. CT sx service unavailable at present at [facility] -Dr. Garsia graciously accepted the patient -continue ASA, statin and lovenox. -May continue low dose metoprolol as tolerated. Status: Acute (2) Essential (primary) hypertension: Bp fairly controlled Status: Acute (3) Tobacco abuse: Status: Acute (4) Family history of coronary artery disease: Status: Acute Additional A&P Information Obesity DM-2 : HbA1C 7.5, previously has tried metformin Thank you for allowing me to participate in patient's care. Please feel free to call with questions or concerns. Attestations Medical Necessity Statement*: Needs continued hospitalization for three-vessel coronary disease and awaiting transfer. Time Spent in Patient Care: 16 - 35 minutes Coding Level of Care Code Acute Priming Machine Operator for g Fwd Diagnoses Non-ST elevated myocardial infarction (non-STEMI) I21.4 Essential (primary) hypertension I10 Tobacco abuse Z72.0 Family history of coronary artery disease Z82.49
--- NOTE | 2021-09-13 12:18 | P.TS_ITS ---
Transfer Summary Providers Date of Admission: 09/13/21 12:00 Date of Discharge: 09/13/21 Attending Provider at Admission: Zainab Jessica MD Attending Provider at Transfer: Dm Lowery MD Anticipated Date of Transfer: Anticipated date of transfer: 09/13/21 Receiving Facility & Provider: Receiving Provider: [] Receiving facility: [] Diagnoses at Discharge Discharge Diagnosis (1) Non-ST elevated myocardial infarction (non-STEMI): Status: Acute (2) Essential (primary) hypertension: Status: Acute (3) Tobacco abuse: Status: Acute (4) Family history of coronary artery disease: Status: Acute Reason for Visit Reason for Visit: High Blood Pressure\Zoning Out Hospital Course Hospital Course Miguelito is a 55-year-old white male who presented to the emergency department with history of chest discomfort, concerning for angina. Troponin was slightly elevated, and with repeat testing had significant delta consistent with non-ST elevation myocardial infarction. EKG did not show any overall concerning changes. Echocardiogram demonstrated mild mitral regurgitation, preserved EF, mild hypokinesis anterior apical, anterior lateral. He was placed on aspirin, statin. He was loaded with Plavix. He was placed on full dose anticoagulation. Later low-dose beta-bruno was added. Angiogram was obtained September 13 demonstrating three-vessel disease. Cardiology believed he would be best served by coronary artery bypass. Dr. Parekh graciously arranged accepting physician at [facility], Dr. Garsia,, to accept patient in transfer. From my understanding this will likely happen on September 12. Patient was also found to have elevated sugar, elevated A1c consistent with diabetes while in house. He was started on a consistent carb diet and sliding scale insulin. Physical Exam Narrative: EXAM NARRATIVE: See exam done earlier today TS Data Data Completed and Pending: Completed Studies During Hospitalization Category Date Time Status XR chest 1V juliet ble [id number] Stat Exams 09/12/21 00:10 Completed CV. echo complete * [id number] Routine Ultrasound 09/12/21 05:20 Completed Pending at discharge Category Date Time Status HOUSING ASSISTANT request for service Routin e Exams 09/13/21 07:30 Ordered Basic Metabolic P tello AM LABS Lab 09/14/21 04:00 Ordered Complete Blood Co unt w/Auto AM LABS Lab 09/14/21 04:00 Ordered Labs from last 24 hours 09/13/21 09/13/21 09/13/21 06:24 03:19 03:19 WBC 13.6 H RBC 4.87 Hgb 14.4 Hct 44.6 MCV 91.6 MCH 29.6 MCHC 32.3 RDW 12.7 Plt Count 193 MPV 11.1 H Neut % (Auto) 69.2 Lymph % (Auto) 18.9 [place] % (Auto) 10.6 Eos % (Auto) 0.7 Baso % (Auto) 0.3 Neut # (Auto) 9.42 H Lymph # (Auto) 2.6 [place] # (Auto) 1.4 H Eos # (Auto) 0.1 Baso # (Auto) 0.0 Nucleated RBC % (a uto) 0 Nucleated RBCs # 0.0 Sodium 139 Potassium 4.8 Chloride 99 Carbon Dioxide 28 Anion Gap 16.8 BUN 11 Creatinine 1.1 GFR Calculation 69.8 L Glucose 138 H POC Glucose 161 H Calculated Osmolal ity 290 Calcium 9.1 Total Bilirubin 0.3 AST 125 H ALT 47 H Alkaline Phosphata se 67 Total Protein 7.0 Albumin 4.2 Globulin 2.8 Coronavirus 229E ( PCR) SARS-CoV-2 (PCR) 09/12/21 09/12/21 09/12/21 20:53 19:21 16:45 WBC RBC Hgb Hct MCV MCH MCHC RDW Plt Count MPV Neut % (Auto) Lymph % (Auto) [place] % (Auto) Eos % (Auto) Baso % (Auto) Neut # (Auto) Lymph # (Auto) [place] # (Auto) Eos # (Auto) Baso # (Auto) Nucleated RBC % (a uto) Nucleated RBCs # Sodium Potassium Chloride Carbon Dioxide Anion Gap BUN Creatinine GFR Calculation Glucose POC Glucose 132 H 226 H 125 H Calculated Osmolal ity Calcium Total Bilirubin AST ALT Alkaline Phosphata se Total Protein Albumin Globulin Coronavirus 229E ( PCR) SARS-CoV-2 (PCR) 09/12/21 11:30 WBC RBC Hgb Hct MCV MCH MCHC RDW Plt Count MPV Neut % (Auto) Lymph % (Auto) [place] % (Auto) Eos % (Auto) Baso % (Auto) Neut # (Auto) Lymph # (Auto) [place] # (Auto) Eos # (Auto) Baso # (Auto) Nucleated RBC % (a uto) Nucleated RBCs # Sodium Potassium Chloride Carbon Dioxide Anion Gap BUN Creatinine GFR Calculation Glucose POC Glucose Calculated Osmolal ity Calcium Total Bilirubin AST ALT Alkaline Phosphata se Total Protein Albumin Globulin Coronavirus 229E ( PCR) Not detected SARS-CoV-2 (PCR) Not detected Vitals: Last Vital Signs Temp 98 F 09/12/21 23:02 Pulse 90 09/13/21 04:23 Resp 16 09/13/21 03:39 BP 153/90 09/13/21 03:39 Pulse Ox 93 09/13/21 03:39 TS Medications Medications Home Medications melatonin 5 mg capsule 5 mg PO BEDTIME cap 10/25/20 [History Confirmed 09/12/21] meloxicam 15 mg tablet 15 mg PO DAILY #90 tab 10/25/20 [Rx Confirmed 09/12/21] acetaminophen [Tylenol Arthritis Pain] 650 mg PO Q12H PRN 09/12/21 [History Confirmed 09/12/21] albuterol sulfate [ProAir HFA] 2 puff INHALATION QID PRN 09/12/21 [History Confirmed 09/12/21] aspirin 325 mg PO PRN PRN 09/12/21 [History Confirmed 09/12/21] glucosamine sulfate [Glucosamine] 500 mg PO DAILY 09/12/21 [History Confirmed 09/12/21] lisinopril 40 mg PO BEDTIME 09/12/21 [History Confirmed 09/12/21] lorazepam [Ativan] 0.5 mg PO DAILY PRN 09/12/21 [History Confirmed 09/12/21] magnesium oxide 400 mg PO DAILY 09/12/21 [History Confirmed 09/12/21] montelukast 10 mg PO QAM 09/12/21 [History Confirmed 09/12/21] multivitamin 1 tab PO QAM 09/12/21 [History Confirmed 09/12/21] omeprazole 20 mg PO QAM 09/12/21 [History Confirmed 09/12/21] triamcinolone acetonide 1 applic TOPICAL DAILY PRN 09/12/21 [History Confirmed 09/12/21] turmeric 400 mg PO DAILY 09/12/21 [History Confirmed 09/12/21] Active Medications Acetaminophen (Acetaminophen 325 Mg Tablet) 650 mg PO Q6H PRN PRN Reason: Mild/Mod Pain Or Temp >/= 101 Last Admin: 09/13/21 06:13 Dose: 650 mg Documented by: Al Hydrox/Mg Hydrox/Simethicone (Xuag-Kgm-Puxgoyntq-Mariel 30 Ml Udc) 30 ml PO Q15M PRN PRN Reason: INDIGESTION Aspirin (Aspirin 325 Mg Tablet) 325 mg PO DAILY [facility] Last Admin: 09/13/21 10:07 Dose: 325 mg Documented by: Atorvastatin Calcium (Atorvastatin 40 Mg Tablet) 80 mg PO BEDTIME [facility] Last Admin: 09/12/21 19:45 Dose: 80 mg Documented by: Atropine Sulfate (Atropine 1 Mg/Ml Sdv 1 Ml) 0.5 mg IVP PRN PRN PRN Reason: Symptomatic bradycardia Dextrose (Dextrose 50% Syringe 50 Ml) 25 ml IVP ONCE PRN; Protocol PRN Reason: hypoglycemia protocol Dextrose (Dextrose 50% Syringe 50 Ml) 50 ml IVP PRN PRN; Protocol PRN Reason: hypoglycemia protocol Enoxaparin Sodium (Enoxaparin 120 Mg/0.8 Ml Syringe) 110 mg SUBCUT Q12H [facility] Last Admin: 09/13/21 03:35 Dose: 110 mg Documented by: Fentanyl (Fentanyl 50 Mcg/Ml Inj 2ml) 50 mcg IVP PRN PRN PRN Reason: Prior to sheath removal Glucagon (Glucagon 1 Mg/Ml Inj 1 Ml) 1 mg IM ONCE PRN; Protocol PRN Reason: Adult Acute Hypoglycemia Prot. Dextrose (D5w) 500 mls @ 100 mls/hr IV ONCE PRN; Protocol PRN Reason: Adult Acute Hypoglycemia Prot Sodium Chloride (Sodium Chloride 0.9%) 1,000 mls @ 50 mls/hr IV .Q20H ONE Stop: 09/14/21 02:29 Last Admin: 09/13/21 06:13 Dose: 50 mls/hr Documented by: Insulin Human Lispro (Insulin Lispro 100 Unit/1 Ml) 0 unit SUBCUT WM&BEDTIME [facility]; Protocol Last Admin: 09/12/21 20:57 Dose: Not Given Documented by: Lisinopril (Lisinopril 20 Mg Tablet) 40 mg PO DAILY [facility] Last Admin: 09/12/21 09:04 Dose: 40 mg Documented by: Magnesium Hydroxide (Magnesium Hydroxide 30 Ml Udc) 30 ml PO DAILY PRN PRN Reason: CONSTIPATION Last Admin: 09/13/21 09:43 Dose: 30 ml Documented by: Metoprolol Tartrate (Metoprolol Tartrate 25 Mg Tablet) 12.5 mg PO BID@0900,2100 [facility] Last Admin: 09/13/21 10:07 Dose: 12.5 mg Documented by: Morphine Sulfate (Morphine 4 Mg/Ml Sdv 1 Ml) 2 mg IVP Q4H PRN PRN Reason: SEVERE PAIN Last Admin: 09/12/21 19:43 Dose: 2 mg Documented by: Naloxone HCl (Naloxone 0.4 Mg/Ml Sdv) 0.1 mg IVP Q2M PRN PRN Reason: RESPIRATORY RATE < 8/MIN Nitroglycerin (Nitroglycerin 0.4 Mg Sublingual Tablet) 0.4 mg SUBLINGUAL Q5M PRN PRN Reason: CHEST PAIN Ondansetron HCl (Ondansetron 2 Mg/Ml Sdv 2 Ml) 4 mg IVP Q8H PRN PRN Reason: vomiting, or N/V if npo Last Admin: 09/13/21 09:44 Dose: 4 mg Documented by: Pantoprazole Sodium (Pantoprazole Dr 40 Mg Tablet) 40 mg PO DAILY [facility] Last Admin: 09/12/21 09:04 Dose: 40 mg Documented by: Temazepam (Temazepam 15 Mg Capsule) 15 mg PO BEDTIME PRN PRN Reason: INSOMNIA Trazodone HCl (Trazodone 100 Mg Tablet) 100 mg PO BEDTIME [facility] Last Admin: 09/12/21 19:48 Dose: Not Given Documented by: Discharge Plan Discharge Patient Disposition: Xfer Short-Term Hosp Condition: Stable Prescriptions: No Action melatonin 5 mg capsule 5 mg PO BEDTIME RF: 0 meloxicam 15 mg tablet 15 mg PO DAILY Qty: 90 RF: 3 multivitamin Tablet 1 tab PO QAM RF: 0 triamcinolone acetonide 0.5 % cream 1 applic TOPICAL DAILY PRN (Reason: unknown) RF: 0 aspirin 325 mg Tablet 325 mg PO PRN PRN (Reason: Chest Pain) RF: 0 lisinopril 20 mg tablet 40 mg PO BEDTIME RF: 0 Glucosamine 500 mg Tablet 500 mg PO DAILY RF: 0 Tylenol Arthritis Pain 650 mg Tablet Extended Release 650 mg PO Q12H PRN (Reason: Pain) RF: 0 Ativan 0.5 mg Tablet 0.5 mg PO DAILY PRN (Reason: pt states this is an old rx he uses prn) RF: 0 omeprazole 20 mg capsule,delayed release(DR/EC) 20 mg PO QAM RF: 0 montelukast 10 mg tablet 10 mg PO QAM RF: 0 ProAir HFA 90 mcg/actuation Hfa Aerosol Inhaler 2 puff INHALATION QID PRN (Reason: Shortness Of Breath) RF: 0 magnesium oxide 400 mg magnesium Tablet 400 mg PO DAILY RF: 0 turmeric 400 mg Capsule 400 mg PO DAILY RF: 0 Discharge Orders: Transfer Out of Facility (Order); Ordered 09/13/21 Ordered By: Dm Lowery Transfer Attestations Time Spent in Transfer Care*: greater than 30 min Quality Metrics Clinical Quality Measures: During this hospital stay, did patient experience: AMI Clinical Trial Participant: No Contraindication to aspirin (AMI): Aspirin given Contraindication to statin: Statin prescribed Coding Level of Care Code Acute Sleeve Separator for Chg Fwd Diagnoses Non-ST elevated myocardial infarction (non-STEMI) I21.4 Essential (primary) hypertension I10 Tobacco abuse Z72.0 Family history of coronary artery disease Z82.49
[2021-09-13 12:26] LABS: Glucose Point of Care 227 mg/dL (70-110)
[2021-09-13] MEDS: insulin lispro 100 unit/1 mL SUBCUT (12:54)
--- NOTE | 2021-09-13 16:45 | PC.NURSE ---
Hand off Report given to roxana Tobias
--- NOTE | 2021-09-13 17:56 | PC.NURSE ---
Ambulance here for transport Pt taken via stretcher.
[2021-09-13 18:06] LABS: Glucose Point of Care 108 mg/dL (70-110)
== END 2021-09-13 17:59 | disposition short-term general hospital (02) | DRG 282 ==
LOC: ER 09-12 04:08 → ER IP 09-12 04:14 → CSU 09-12 07:49
PROVIDERS: Internal Medicine; Admitting Provider Student in an Organized Health Care Education/Training Program; Emergency Provider Emergency Medicine; Visit Provider Internal Medicine
DX: I21.4 Non-ST elevation (NSTEMI) myocardial infarction (principal); I25.10 Atherosclerotic heart disease of native coronary artery without angina pectoris; I10 Essential (primary) hypertension; Z86.19 Personal history of other infectious and parasitic diseases; F17.220 Nicotine dependence, chewing tobacco, uncomplicated; Z82.49 Family history of ischemic heart disease and other diseases of the circulatory system; E11.65 Type 2 diabetes mellitus with hyperglycemia; I34.0 Nonrheumatic mitral (valve) insufficiency
CPT/HCPCS: 36415; 36416; 71045; 80053; 80061; 82550; 82962; 83036; 83721; 83880; 84443; 84484; 85025; 85610; 85730; 87635; 93005; 93306; 93454; 96372; 96374; 96375; 99285; C1769; C1887; C1894; G0378; J1644; J1650; J1815; J2250; J2270; J2405; J3010; J3490; J7030; Q0163; Q9967

== ENCOUNTER → 2022-04-06 09:41 | Outpatient (BNVA) | payer MEDICAID, SELFPAY | PROVIDERS: PCP Internal Medicine; Visit Provider Nurse Practitioner Family | DX: T81.31XA Disruption of external operation (surgical) wound, not elsewhere classified, initial encounter (principal); Y83.8 Other surgical procedures as the cause of abnormal reaction of the patient, or of later complication, without mention of misadventure at the time of the procedure; I96 Gangrene, not elsewhere classified | CPT/HCPCS: 11042; 99203; 99213 ==

== ENCOUNTER → 2022-04-13 10:04 | Outpatient (BNVA) | payer MEDICAID, SELFPAY | PROVIDERS: PCP Internal Medicine; Visit Provider Nurse Practitioner Family | DX: T81.31XA Disruption of external operation (surgical) wound, not elsewhere classified, initial encounter (principal); Y83.8 Other surgical procedures as the cause of abnormal reaction of the patient, or of later complication, without mention of misadventure at the time of the procedure; I96 Gangrene, not elsewhere classified | CPT/HCPCS: 11042; A6212 ==

== ENCOUNTER → 2022-04-14 14:03 | Outpatient (BNVA) | payer MEDICAID, SELFPAY | PROVIDERS: PCP Internal Medicine; Visit Provider Nurse Practitioner Family | DX: T81.31XS Disruption of external operation (surgical) wound, not elsewhere classified, sequela (principal); Y83.8 Other surgical procedures as the cause of abnormal reaction of the patient, or of later complication, without mention of misadventure at the time of the procedure | CPT/HCPCS: 97605 ==

== ENCOUNTER → 2022-04-17 14:32 | Outpatient (BNVA) | payer MEDICAID, SELFPAY | PROVIDERS: PCP Internal Medicine; Visit Provider Thoracic Surgery (Cardiothoracic Vascular Surgery) | DX: T81.89XA Other complications of procedures, not elsewhere classified, initial encounter (principal); Y83.8 Other surgical procedures as the cause of abnormal reaction of the patient, or of later complication, without mention of misadventure at the time of the procedure; I96 Gangrene, not elsewhere classified | CPT/HCPCS: 99212 ==

== ENCOUNTER 2022-04-19 10:23 | Emergency (ER) | payer MEDICAID, SELFPAY ==
[2022-04-19 10:51] VITALS: BP 143/85; PULSE 87; RESP 18; TEMP 36.8; O2SAT 95; BMI 37.5
--- NOTE | 2022-04-19 11:20 | XR_ITS ---
WS: [id number] Exam: XR chest 2V* [id number] Date/Time of Exam: 04/19/2022 11:31 AM Reason For Exam: cabg, wire issues Comparison 09/12/2021. The lungs are fully inflated. Areas of plaque atelectasis in the left base. Heart size top limits nor mal. The mediastinum is normal in contour. Signs of previous CABG surgery and median sternotomy. Irina ral of the sternal wires have fractured. Bony structures are intact. XR/XR chest 2V* [id number] IMPRESSION: 1. No acute process identified. 2. Areas of plaque atelectasis in the left base. 3. Status post CABG surgery.
--- NOTE | 2022-04-19 12:48 | CT_ITS ---
WS: [id number] CT CHEST WITH INTRAVENOUS CONTRAST HISTORY: CABG, wire issues, possible infection from wound care, CABG August 2021. TECHNIQUE: Contiguous 5 mm axial imaging performed on the thorax. Coronal and sagittal reformats are submitted. All CT scans at [facility] use at least one of these dose optimization techniques: automated exposure control; mA and/or kV adjustment per patient size (includes targeted exams where dose is matched to clinical indication); or iterative reconstruction. CONTRAST: Omnipaque 350; 95 mL IV. DLP: 844.72 mGy.cm COMPARISON: None available. Lungs and central airway: Intrapulmonary nodules along the minor fissure measures 5 mm. No mass ident ified. Pleura: Normal. No pleural effusion. Heart and pericardium: Normal size heart. Mediastinum and du: Status post CABG. Epicardial wires are still noted at the surgical bed from the CABG. There is a fluid collection involving the anterior pericardium. Fluid collection measures 7.1 x 4.1 cm and the fluid extends to abut the surface of the RIGHT heart and there is an epicardial pace r wire extending through this collection. There is mild soft tissue stranding in the adjacent pericar dial fat and mild pericardial thickening. There is mild thickening of the adjacent pericardium. This fluid collection extends anteriorly towards the sternotomy site. There is mild retrosternal soft tiss ue thickening and a small adjacent fluid collection more superiorly measuring 3.5 x 2.7 cm. There is mild dehiscence and widening along the sternotomy site measuring up to 6 mm. Vessels: Normal size aorta. Chest wall and lower neck: See above mediastinum and du section. Gynecomastia. Upper abdomen: Prior cholecystectomy. CT/CT chest w con* [id number] IMPRESSION: 1. Status post CABG with mild dehiscence along the sternotomy site up to 6 mm and adjacent soft tissue thickening and enhancement both superficially and retr osternal. 2. Pericardial fluid collection extends to abut the RIGHT pericardium and epic ardium measuring 7.1 x 4.1 cm. There is not a lot of enhancement but pericardia l abscess should be considered. There is an epicardial pacer wire present in th is collection. 3. Mild soft tissue stranding in the mediastinal fat and pericardial fat, cons istent with a mediastinitis.
--- NOTE | 2022-04-19 13:21 | ED_ITS ---
HPI - General Adult General: Chief complaint: General Medical Stated complaint: sent by wound care for CT Time Seen by Provider: 04/19/22 12:48 History of Present Illness: Patient is a 56-year-old male who underwent CABG in 08/2021 at [facility] complicated by chronic wound currently followed by the wound care clinic presenting to the emergency room for request for CT scan. Patient tells me that he was seen earlier today at the wound care clinic and they would like patient to obtain a CT scan to determine depth of one of his chronic incision wound. Patient reports mild drainage and receives daily packing of the wound. Patient denies any fever/chills, chest pain, shortness b reath, palpitation or lightheadedness. Patient has no other focal complaints at this time Onset: chronic x 8 weeks Duration:ongoing Location:home Severity:mild/moderate Associated symptoms: Deny chest pain, dyspnea, nausea, palpitations or vomiting Review of Systems Const: Denies: fever(s) or chills Eyes: Denies: change in vision ENMT: Denies: mouth pain Card: Denies: chest pain or palpitations Resp: Denies: dyspnea or non-productive cough GI: Denies: abdominal pain, nausea, vomiting or diarrhea : Denies: dysuria Musc: Denies: extremity pain Skin/Breast: Reports: new lesions (+chest chronic wound from previous cabg procedure) Neuro: Denies: weakness in extremities Psych: Reports: other (Normal mood) Idris/Lymph: Denies: easy bruising PFSH ED PFSH: Medical History Essential (primary) hypertension Hepatitis C Surgical History H/O vasectomy History of cholecystectomy Family History Mother No problems noted. Grandfather Cancer Father Heart disease Lung disease Diabetes Myocardial infarction Grandmother Dementia Social History Smoking and tobacco status: never smoked Alcohol intake: former Adopted: No service: No History of recent travel: No Current gender identity: Male Physical Exam Const: COMMON NORMALS: alert HENMT: COMMON NORMALS: atraumatic HEAD & SCALP: atraumatic MOUTH: moist mucous membranes not abnormal Eye: COMMON NORMALS: EOMs intact bilaterally and conjunctivae normal CONJUNCTIVA: Yes conjunctivae normal Neck/C-Spine: COMMON NORMALS: full ROM and supple Chest: OTHER: An area of chronic surgical wound with mild drainage at the lower sternal area measuring 6mm in diameter Resp: COMMON NORMALS: normal respiratory effort and clear to auscultation bilaterally AUSCULTATION: clear to auscultation bilaterally Cardio: COMMON NORMALS: regular rate RATE: regular rate GI: COMMON NORMALS: Soft to palpation and non-tender PALPATION: Yes Soft to palpation Extremity: COMMON NORMALS: full ROM Neuro: SENSORIUM/ORIENTATION: Yes alert MOTOR EXAM: No Abnormal motor strength present and Other motor observations present (no focal motor deficits) Psych: COMMON NORMALS: speech normal SPEECH: Yes normal speech MOOD & AFFECT: Yes euthymic mood Skin: NARRATIVE SKIN EXAM: An area of chronic surgical wound with mild drainage at the lower sternal area measuring 1cm in diameter Course Vital Signs: Vital signs: Vital Signs Temperature 98.2 F 04/19/22 10:51 Pulse Rate 87 04/19/22 14:08 Respiratory Rate 16 04/19/22 14:08 Blood Pressure 145/85 04/19/22 14:08 Pulse Oximetry 95 04/19/22 14:08 Oxygen Delivery Me thod 04/19/22 14:08 [facility] - General Adult Medical Decision Making 56-year-old male with history of CABG presenting to the emergency room for concerns of persistent sternal wound evaluation at the request of wound care. On exam, patient has 1 area of 6mm sternal wound on the lower border. Patient is afebrile, hemodynamically stable. Patient has a white count 10.6. CT chest shows possible epicardial abscess with concerns for mediastinitis. I have discussed case with Dr. Cardoso who tells me that since patient has been having the wound for the last 8 weeks, this is likely chronic findings. He is given close follow-up with wound care tomorrow. As patient does not have any fever or chills, acute chest pain, severe inflammatory markers, and wound x 8 weeks, this is unlikely to be acute mediastinitis. Rx cefdinir and bactrim for prophylatic abx Disposition: Discharge. Patient counseled regarding diagnostic impression, treatment plan. Patient given ED strict return precautions to return for continuation, worsening, or development of new symptoms. Instructed to f/u w/ wound care regarding symptoms today. Patient verbalized understanding. Lab Data : 04/19/22 13:48 04/19/22 15:52 Radiology Impressions Chest X-Ray 04/19/22 11:20 IMPRESSION: 1. No acute process identified. 2. Areas of plaque atelectasis in the left base. 3. Status post CABG surgery. Chest CT 04/19/22 12:48 IMPRESSION: 1. Status post CABG with mild dehiscence along the sternotomy site up to 6 mm and adjacent soft tissue thickening and enhancement both superficially and retrosternal. 2. Pericardial fluid collection extends to abut the RIGHT pericardium and epicardium measuring 7.1 x 4.1 cm. There is not a lot of enhancement but pericardial abscess should be considered. There is an epicardial pacer wire present in this collection. 3. Mild soft tissue stranding in the mediastinal fat and pericardial fat, consistent with a mediastinitis. Laboratory Results WBC 10.6 10^3/uL (4.0-10.0) H 04/19/22 13:48 RBC 4.81 10^6/uL (4.1-5.3) 04/19/22 13:48 Hgb 13.1 g/dL (11.7-16.6) 04/19/22 13:48 Hct 42.7 % (42.0-52.0) 04/19/22 13:48 MCV 88.8 fl (80-94) 04/19/22 13:48 MCH 27.2 pg (28.0-34.0) L 04/19/22 13:48 MCHC 30.7 g/dL (30.0-36.0) 04/19/22 13:48 RDW 15.0 % (12.1-15.1) 04/19/22 13:48 Plt Count 235 10^3/cmm (130-400) 04/19/22 13:48 MPV 11.4 fL (7.4-10.4) H 04/19/22 13:48 Neut % (Auto) 60.7 % 04/19/22 13:48 Lymph % (Auto) 23.4 % 04/19/22 13:48 [place] % (Auto) 13.3 % 04/19/22 13:48 Eos % (Auto) 1.9 % 04/19/22 13:48 Baso % (Auto) 0.4 % 04/19/22 13:48 Neut # (Auto) 6.45 10^3/uL (1.8-7.7) 04/19/22 13:48 Lymph # (Auto) 2.5 10^3/uL (0.8-4.8) 04/19/22 13:48 [place] # (Auto) 1.4 10^3/uL (0.2-0.9) H 04/19/22 13:48 Eos # (Auto) 0.2 10^3/uL (0.0-0.8) 04/19/22 13:48 Baso # (Auto) 0.0 10^3/uL (0.0-0.1) 04/19/22 13:48 Nucleated RBC % (auto) 0 % 04/19/22 13:48 Nucleated RBCs # 0.0 /100WBC 04/19/22 13:48 Sodium 136 mmol/L (136-145) 04/19/22 15:52 Potassium 4.2 mmol/L (3.5-5.1) 04/19/22 15:52 Chloride 97 mmol/L (98-107) L 04/19/22 15:52 Carbon Dioxide 26 mmol/L (22-29) 04/19/22 15:52 Anion Gap 17.2 (5-19) 04/19/22 15:52 BUN 18 mg/dL (6-20) 04/19/22 15:52 Creatinine 0.8 mg/dL (0.7-1.2) 04/19/22 15:52 GFR Calculation 100.4 mL/min (90-130) 04/19/22 15:52 Glucose 128 mg/dL (65-115) H 04/19/22 15:52 Calculated Osmolality 286 mOsm/kg (285-295) 04/19/22 15:52 Calcium 9.6 mg/dL (8.5-10.5) 04/19/22 15:52 C-Reactive Protein 32.2 mg/L (0.0-4.9) H 04/19/22 15:52 Imaging Data Other Imaging: Radiologist's impression: [address] [address] [address] Scan Report Signed Patient: Miguelito Crespo Jr Unit #: [id number] : 1965 Age/Sex: 56 / M ADM Date: 04/19/22 Loc: ER Room/Bed: Attending Dr: Ordering Provider/Ordering MD: Enio Cardenas MD Date of Service: 04/19/22 Procedure(s): CT chest w con* [id number] Accession Number(s): [id number] Report Number: [id number] WS: [id number] CT CHEST WITH INTRAVENOUS CONTRAST HISTORY: CABG, wire issues, possible infection from wound care, CABG August 2021. TECHNIQUE: Contiguous 5 mm axial imaging performed on the thorax. Coronal and sagittal reformats are submitted.? All CT scans at [facility] use at least one of these dose optimization techniques: automated exposure control; mA and/or kV adjustment per patient size (includes targeted exams where dose is matched to clinical indication); or iterative reconstruction. CONTRAST: Omnipaque 350; 95 mL IV. DLP: 844.72 mGy.cm COMPARISON: None available. Lungs and central airway: Intrapulmonary nodules along the minor fissure measures 5 mm. No mass identified. Pleura: Normal. No pleural effusion. Heart and pericardium: Normal size heart. Mediastinum and du: Status post CABG. Epicardial wires are still noted at the surgical bed from the CABG. There is a fluid collection involving the anterior pericardium. Fluid collection measures 7.1 x 4.1 cm and the fluid extends to abut the surface of the RIGHT heart and there is an epicardial pacer wire extending through this collection. There is mild soft tissue stranding in the adjacent pericardial fat and mild pericardial thickening. There is mild thickening of the adjacent pericardium. This fluid collection extends anteriorly towards the sternotomy site. There is mild retrosternal soft tissue thickening and a small adjacent fluid collection more superiorly measuring 3.5 x 2.7 cm. There is mild dehiscence and widening along the sternotomy site measuring up to 6 mm. Vessels: Normal size aorta. Chest wall and lower neck: See above mediastinum and du section. Gynecomastia. Upper abdomen: Prior cholecystectomy. CT/CT chest w con* [id number] IMPRESSION: ? 1.? Status post CABG with mild dehiscence along the sternotomy site up to 6 mm and adjacent soft tissue thickening and enhancement both superficially and retrosternal. 2.? Pericardial fluid collection extends to abut the RIGHT pericardium and epicardium measuring 7.1 x 4.1 cm. There is not a lot of enhancement but pericardial abscess should be considered. There is an epicardial pacer wire present in this collection. 3.? Mild soft tissue stranding in the mediastinal fat and pericardial fat, consistent with a mediastinitis. ? ? ? Dictated By: Radha Chowdhury DO Signed By: Radha Chowdhury DO Signed Date/Time: 04/19/22 1415 DD/ 1345 Discharge Plan Discharge Patient Disposition: Home Clinical Impression: Sternal wound dehiscence Condition: Stable Prescriptions: New Bactrim 400-80 mg tablet 1 tab PO BID 10 Days Qty: 20 0RF cefdinir 300 mg capsule 300 mg PO BID 10 Days Qty: 20 0RF No Action melatonin 5 mg capsule 5 mg PO BEDTIME atorvastatin 80 mg tablet 80 mg PO DAILY Qty: 90 3RF spironolactone [Aldactone] 25 mg tablet 25 mg PO DAILY Qty: 90 3RF carvedilol 6.25 mg tablet 6.25 mg PO BID Qty: 180 3RF insulin glargine [Lantus Solostar U-100 Insulin] 100 unit/mL (3 mL) insulin pen 12 unit SUBCUT DAILY Rx Instructions: 340b omega-3 fatty acids 1,000 mg capsule 1,000 mg PO DAILY furosemide 20 mg tablet 20 mg PO QAM montelukast 10 mg tablet See Rx Instructions .ROUTE .COMPLEX Qty: 90 0RF Dose Instruction: Take 1 tablet by mouth once daily Rx Instructions: Take 1 tablet by mouth once daily tramadol 100 mg tablet 100 mg PO Q6H PRN (Reason: pain) Qty: 90 5RF multivitamin Tablet 1 tab PO QAM triamcinolone acetonide 0.5 % cream 1 applic TOPICAL DAILY PRN (Reason: unknown) Glucosamine 500 mg Tablet 500 mg PO DAILY Tylenol Arthritis Pain 650 mg Tablet Extended Release 650 mg PO Q12H PRN (Reason: Pain) Ativan 0.5 mg Tablet 0.5 mg PO DAILY PRN (Reason: pt states this is an old rx he uses prn) omeprazole 20 mg capsule,delayed release(DR/EC) 20 mg PO QAM magnesium oxide 400 mg magnesium Tablet 400 mg PO DAILY turmeric 400 mg Capsule 400 mg PO DAILY aspirin 325 mg tablet 325 mg PO DAILY Discharge Orders: Discharge ED (Routine); Ordered 04/19/22 Ordered By: Enio Cardenas Referrals: Ramo Ferrell MD [Primary Care Provider] - Discharge Diet: Advance as tolerated Discharge Activity: Increase activity as tolerated Patient Instructions: Chronic Wound Care (ED) Activity Restrictions/Additional Instructions: Please follow-up with wound care for reassessment of your wound tomorrow per Dr. Cardoso. Continues to perform your packing as explained by wound care. Take your antibiotics as instructed. Come back to the emergency room for significant fever chills, chest pain, worsening drainage, bleeding, or any new or concerning complaints Please come back if you have any worsening abdominal pain, fever or chills, nausea or vomiting, diarrhea, blood in the stool, inability hold down liquid or solids, or any new concerning complaints. 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
[2022-04-19] MEDS: iohexol 350 mg/mL 100 mL Btl IV (13:40)
[2022-04-19 14:08] VITALS: BP 145/85; PULSE 87; RESP 16; O2SAT 95
[2022-04-19 14:10] LABS: Basophils % 0.4 %; Eosinophils # 0.2 10^3/uL (0.0-0.8); Eosinophils % 1.9 %; Hematocrit 42.7 % (42.0-52.0); Hemoglobin 13.1 g/dL (11.7-16.6); Lymphocytes # 2.5 10^3/uL (0.8-4.8); Lymphocytes % 23.4 %; Mean Corpuscular HGB Conc 30.7 g/dL (30.0-36.0); Mean Corpuscular Hemoglobin 27.2 pg (28.0-34.0); Mean Corpuscular Volume 88.8 fl (80-94); Mean Platelet Volume 11.4 fL (7.4-10.4); Monocytes # 1.4 10^3/uL (0.2-0.9); Monocytes % 13.3 %; Neutrophils # 6.45 10^3/uL (1.8-7.7); Neutrophils % 60.7 %; Nucleated Red Blood Cells % 0 %; Platelet Count 235 10^3/cmm (130-400); Red Blood Count 4.81 10^6/uL (4.1-5.3); White Blood Count 10.6 10^3/uL (4.0-10.0)
[2022-04-19 16:27] LABS: Anion Gap 17.2 (5-19); Blood Urea Nitrogen 18 mg/dL (6-20); C Reactive Protein 32.2 mg/L (0.0-4.9); Calcium 9.6 mg/dL (8.5-10.5); Carbon Dioxide 26 mmol/L (22-29); Chloride 97 mmol/L (98-107); Glomerular Filtration Rate 100.4 mL/min (90-130); Glucose 128 mg/dL (65-115); Osmolality Calculated 286 mOsm/kg (285-295); Potassium 4.2 mmol/L (3.5-5.1); Sodium 136 mmol/L (136-145)
--- NOTE | 2022-04-20 08:08 | DCPLANNER ---
Addendum entered by Annelise Garcia 04/25/22 11:08: Patient had a follow up appointment scheduled for 04.20.22 with Ana at Wound Care - patient did attend appointment. Original Note: truck sales manager had message to schedule a follow up appointment for patient with Wound Care. truck sales manager sent patients information to the front office staff at [facility]. Patients information will be printed and reviewed. Clinic will call patient with appointment information.
== END 2022-04-19 16:13 | disposition home or self-care (01) ==
PROVIDERS: Emergency Provider Emergency Medicine; PCP Internal Medicine
DX: T81.30XA Disruption of wound, unspecified, initial encounter (principal); Z79.82 Long term (current) use of aspirin; Z79.4 Long term (current) use of insulin; I10 Essential (primary) hypertension; Z86.19 Personal history of other infectious and parasitic diseases; Z95.1 Presence of aortocoronary bypass graft
CPT/HCPCS: 71046; 71260; 80048; 85025; 86140; 99284; Q9967

== ENCOUNTER 2022-04-20 | Outpatient (CLI) | payer MEDICAID, SELFPAY | END 2022-04-20 23:59 | disposition home or self-care (01) | LOC: RAD 04-24 15:57 | PROVIDERS: PCP Internal Medicine; Visit Provider Thoracic Surgery (Cardiothoracic Vascular Surgery) | DX: T81.89XA Other complications of procedures, not elsewhere classified, initial encounter (principal); Y83.8 Other surgical procedures as the cause of abnormal reaction of the patient, or of later complication, without mention of misadventure at the time of the procedure; I96 Gangrene, not elsewhere classified | CPT/HCPCS: 99212 ==

== ENCOUNTER → 2022-04-24 15:06 | Outpatient (BNVA) | payer MEDICAID, SELFPAY | PROVIDERS: PCP Internal Medicine; Visit Provider Internal Medicine Cardiovascular Disease | DX: I10 Essential (primary) hypertension (principal); I25.10 Atherosclerotic heart disease of native coronary artery without angina pectoris; T81.32XA Disruption of internal operation (surgical) wound, not elsewhere classified, initial encounter; Z95.1 Presence of aortocoronary bypass graft; E11.9 Type 2 diabetes mellitus without complications; Z79.4 Long term (current) use of insulin; Z82.49 Family history of ischemic heart disease and other diseases of the circulatory system | CPT/HCPCS: 99214 ==

== ENCOUNTER → 2022-07-10 15:20 | Outpatient (BNVA) | payer MEDICAID, SELFPAY | PROVIDERS: PCP Internal Medicine; Visit Provider Internal Medicine Cardiovascular Disease | DX: R06.02 Shortness of breath (principal); I25.10 Atherosclerotic heart disease of native coronary artery without angina pectoris; I21.4 Non-ST elevation (NSTEMI) myocardial infarction; T81.32XA Disruption of internal operation (surgical) wound, not elsewhere classified, initial encounter; I10 Essential (primary) hypertension | CPT/HCPCS: 71046 ==

== ENCOUNTER 2022-07-20 10:08 | Outpatient (CLI) | payer MEDICAID, SELFPAY ==
[2022-07-20 10:52] LABS: Alanine Aminotransferase 48 U/L (0-41); Albumin Level 4.2 g/dL (3.5-5.2); Alkaline Phosphatase 100 U/L (40-130); Anion Gap 17.6 (5-19); Aspartate Amino Transferase 30 U/L (0-40); Blood Urea Nitrogen 15 mg/dL (6-20); Calcium 10.4 mg/dL (8.5-10.5); Carbon Dioxide 27 mmol/L (22-29); Chloride 94 mmol/L (98-107); Chol HDL Ratio 3.38 mg/dL (1.0-5.00); Cholesterol 152 mg/dL (0-200); Globulin 4.7 g/dL (1.3-4.6); Glomerular Filtration Rate 87.6 mL/min (90-130); Glucose 180 mg/dL (65-115); HDL Cholesterol 45 mg/dL (60-100); LDL Cholesterol Calculated 75 mg/dL (50-129); LDL Cholesterol Direct 80 mg/dL (0-100); LDL HDL Ratio 1.67 RATIO (0.00-3.22); Osmolality Calculated 283 mOsm/kg (285-295); Potassium 4.6 mmol/L (3.5-5.1); Sodium 134 mmol/L (136-145); Total Bilirubin 0.6 mg/dL (0.15-1.2); Total Protein 8.9 g/dL (6.6-8.7); Triglycerides 162 mg/dL (0-150)
== END 2022-07-20 10:09 | disposition home or self-care (01) ==
LOC: LAB 10:10
PROVIDERS: PCP Internal Medicine; Visit Provider Internal Medicine Cardiovascular Disease
DX: I10 Essential (primary) hypertension (principal); I21.4 Non-ST elevation (NSTEMI) myocardial infarction; I25.10 Atherosclerotic heart disease of native coronary artery without angina pectoris; E11.9 Type 2 diabetes mellitus without complications
CPT/HCPCS: 80053; 80061; 83721

== ENCOUNTER 2022-07-24 12:00 | Outpatient (CLI) | payer MEDICAID, SELFPAY | END 2022-07-24 12:01 | disposition home or self-care (01) | LOC: SLEEP 07-25 12:21 | PROVIDERS: PCP Internal Medicine; Visit Provider Internal Medicine Cardiovascular Disease | DX: G47.10 Hypersomnia, unspecified (principal) | CPT/HCPCS: G0399 ==

== ENCOUNTER 2022-08-28 14:48 | Outpatient (CLI) | payer MEDICAID, SELFPAY ==
--- NOTE | 2022-08-28 15:00 | USCV_ITS ---
Miguelito Crespo Age: 56 Gender: M : 1965 Exam Date: 08/28/2022 14:58 Ordering Phys: Germaine Parekh MD ([email or web address]) Technologist: [place] [facility] [place]: chest pain, post cath chest, infection BP: 140 / 80 HR: 79 Rhythm: Sinus Technical Quality: Adequate MEASUREMENTS (Male / Female) Normal Values 2D ECHO LV Diastolic Diameter PLAX 4.6 cm 4.2 - 5.9 / 3.9 - 5.3 cm LV Systolic Diameter PLAX 2.6 cm IVS Diastolic Thickness 1.2 cm 0.6 - 1.0 / 0.6 - 0.9 cm IVS Systolic Thickness 1.4 cm LVPW Diastolic Thickness 1.1 cm 0.6 - 1.0 / 0.6 - 0.9 cm LVPW Systolic Thickness 1.3 cm LVOT Diameter 2.0 cm LV Ejection Fraction 2D Teich 74.1 % LV Ejection Fraction MOD 2C 62.6 % LV Ejection Fraction 2C AL 62.0 % LA Diameter 4.3 cm M-MODE Aortic Annulus Diameter 3.5 cm LA Ao Ratio MM 1.2 MV E Point Septal Separation 1.6 cm DOPPLER AV Peak Velocity 140.0 cm/s LVOT Peak Velocity 129.0 cm/s AV Area Cont Eq vti 2.5 cm squared AV Area Cont Eq pk 2.9 cm squared MV Area PHT 5.0 cm squared Mitral E to A Ratio 0.9 MV E' Velocity 49.0 cm/s Mitral E to MV E' Ratio 6.8 Mitral E to LV E' Lateral Ratio 4.8 Mitral E to LV E' Septal Ratio 11.3 TR Peak Velocity 236.3 cm/s TR Peak Gradient 22.3 mmHg TV Peak E Velocity 116.0 cm/s Right Atrial Pressure 3.0 mmHg Pulmonary Artery Systolic Pressu 25.3 mmHg RV Acceleration Time 0.2 s FINDINGS Left Ventricle Normal left ventricular cavity size. Normal left ventricular wall thickness. Mildly decreased left ventricular systolic function. Left ventricular ejection fraction is estimated at 50- 55 %. There is moderate hypokinesis of basal to mid inferior and basal to mid inferoseptal multani. Normal diastolic function. Abnormal (paradoxical) septal motion consistent with postoperative status. Right Ventricle Normal right ventricular size and systolic function. RVSP could not be calculated due to incomplete tricuspid regurgitation velocity profile. Right Atrium Normal right atrial size. Left Atrium Normal left atrial size. Mitral Valve Mildly thickened mitral valve. No mitral valve stenosis. Mild mitral valve regurgitation. Aortic Valve Structurally normal trileaflet aortic valve. No aortic valve stenosis. No aortic valve regurgitation. Tricuspid Valve Structurally normal tricuspid valve. No tricuspid valve stenosis. Trace tricuspid valve regurgitation. Pulmonic Valve Structurally normal pulmonic valve. No pulmonary valve stenosis. Pericardium No pericardial effusion. Aorta Normal-sized aortic root. IVC Inferior vena cava not visualized. CONCLUSIONS 1. Normal left ventricular cavity size and wall thickness. Mildly decreased left ventricular systolic function. Left ventricular ejection fraction is estimated at 50-55 %. There is moderate hypokinesis of basal to mid inferior and basal to mid inferoseptal multani. Normal diastolic function. 2. Mild mitral valve regurgitation. 3. When compared to study dated 09/12/2021, there may not have been any significant change. Germaine Parekh MD (Electronically Signed) Final Date: 28 August 2022 17:20 S
== END 2022-08-28 14:49 | disposition home or self-care (01) ==
LOC: RAD 14:49
PROVIDERS: PCP Internal Medicine; Visit Provider Internal Medicine Cardiovascular Disease
DX: I25.10 Atherosclerotic heart disease of native coronary artery without angina pectoris (principal); R06.02 Shortness of breath; R07.9 Chest pain, unspecified; I34.0 Nonrheumatic mitral (valve) insufficiency
CPT/HCPCS: 93306

== ENCOUNTER 2022-10-17 05:40 | Day surgery (SDC) | payer MEDICAID, SELFPAY ==
[2022-10-12 11:06] VITALS: BMI 39.1
--- NOTE | 2022-10-12 11:16 | ECG_ITS ---
[facility] Test Date: 2022-10-12 Pat Name: Miguelito Crespo Department: Room: Gender: Male Occupational Therapy Assistant: : 1965 Requested By: Oswaldo Norton Order Number: [id number] Mansi MD: Cristopher Leo M.D. Measurements Intervals [place] Rate: 74 P: 52 IL: 165 QRS: -27 QRSD: 107 T: 83 QT: 377 QTc: 418 Interpretive Statements SINUS RHYTHM POSSIBLE LEFT ATRIAL ENLARGEMENT [-0.1mV P-WAVE IN V1/V2] BORDERLINE LEFT AXIS DEVIATION [QRS AXIS < -20] INCOMPLETE RIGHT BUNDLE BRANCH BLOCK [90+ ms QRS DURATION, TERMINAL R IN V1/V2, 40+ ms S IN I/aVL/V4/V5/V6] MODERATE T-WAVE ABNORMALITY, CONSIDER ANTERIOR ISCHEMIA [-0.1+ mV T-WAVE IN V3/V4] Compared to ECG 09/12/2021 10:28:40 T-wave abnormality now present Possible ischemia now present Electronically Signed On 10-12-2022 14:46:50 SIGN BUILDER by Cristopher Leo M.D. [email or web address]
[2022-10-12 11:52] LABS: Basophils % 0.4 %; Eosinophils # 0.2 10^3/uL (0.0-0.8); Eosinophils % 1.5 %; Hematocrit 50.6 % (42.0-52.0); Hemoglobin 15.6 g/dL (11.7-16.6); Lymphocytes # 2.4 10^3/uL (0.8-4.8); Lymphocytes % 22.2 %; Mean Corpuscular HGB Conc 30.8 g/dL (30.0-36.0); Mean Corpuscular Hemoglobin 28.5 pg (28.0-34.0); Mean Corpuscular Volume 92.5 fl (80-94); Mean Platelet Volume 10.2 fL (7.4-10.4); Monocytes # 0.8 10^3/uL (0.2-0.9); Monocytes % 7.4 %; Neutrophils # 7.52 10^3/uL (1.8-7.7); Neutrophils % 68.3 %; Nucleated Red Blood Cells % 0 %; Platelet Count 233 10^3/cmm (130-400); Red Blood Count 5.47 10^6/uL (4.1-5.3); Red Cell Distribution Width 12.7 % (12.1-15.1)
[2022-10-12 12:16] LABS: Blood Urea Nitrogen 13 mg/dL (6-20); Calcium 9.3 mg/dL (8.5-10.5); Carbon Dioxide 24 mmol/L (22-29); Chloride 94 mmol/L (98-107); Glomerular Filtration Rate 117.1 mL/min (90-130); Glucose 188 mg/dL (65-115); Osmolality Calculated 277 mOsm/kg (285-295); Sodium 131 mmol/L (136-145)
--- NOTE | 2022-10-12 15:51 | ANES.PREANE2 ---
Pre-Anesthetic Assessment Height/Weight: Height 1.7 m Weight 113.398 kg Preop Diagnosis: NSTEMI Operation Date: 10/17/22 10:40 Proposed Procedures p Sternal Wire Removal 46272,T81.32XA(Not Applicable) - Job Cardoso MD Familial anesthetic complications: none Was Beta Lee taken within 24 hours: Yes Was Clonidine taken within 24 hours: N/A Social No alcohol and No tobacco (h/o smoking) Exam alert, oriented x 3, clear to auscultation bilaterally and regular rate & rhythm Airway Submandibular: within normal limits Cervical ROM: within normal limits Mallampati: Class III Dentition: chipped Pulmonary Chronic Obstructive Pulmonary Disease and Sleep Apnea CV/HEM Coronary Artery Disease (CABG), Hypertension and Myocardial Infarction GI Gastroesophageal Reflux Disease Metabolic Diabetes Mellitus, Hyperlipidemia and Morbid Obesity Anesthetic Plan ASA status: 3 Anesthesia: General Medications/Allergies Home Medications Medication Instructions Recorded Confirmed Last Taken Type melatonin 5 mg capsule 5 mg PO BEDTIME 10/25/20 10/12/22 Unknown History acetaminophen 650 mg 650 mg PO Q12H PRN Pain 09/12/21 10/12/22 Unknown History tablet,extended release (Tylenol Arthritis Pain) glucosamine sulfate 500 mg tablet 500 mg PO DAILY 09/12/21 10/12/22 Unknown History (Glucosamine) lorazepam 0.5 mg tablet (Ativan) 0.5 mg PO DAILY PRN pt states this 09/12/21 10/12/22 Unknown History is an old rx he uses prn magnesium oxide 400 mg PO DAILY 09/12/21 10/12/22 Unknown History multivitamin 1 tab PO QAM 09/12/21 10/12/22 Unknown History omeprazole 20 mg capsule,delayed 20 mg PO QAM 09/12/21 10/12/22 Unknown History release triamcinolone acetonide 0.5 % 1 applic topical DAILY PRN unknown 09/12/21 10/12/22 Unknown History topical cream turmeric 400 mg capsule 400 mg PO DAILY 09/12/21 10/12/22 Unknown History atorvastatin 80 mg tablet 80 mg PO DAILY #90 tabs 12/14/21 10/12/22 Unknown Rx carvedilol 6.25 mg tablet 6.25 mg PO BID #180 tabs 12/14/21 10/12/22 Unknown Rx tramadol 100 mg tablet 100 mg PO Q6H PRN pain #90 tabs 02/13/22 10/12/22 Unknown Rx aspirin 325 mg tablet 325 mg PO DAILY Chest Pain 04/24/22 10/12/22 Unknown History omega-3 fatty acids 1,000 mg 1,000 mg PO DAILY 04/24/22 10/12/22 Unknown History capsule montelukast 10 mg tablet See Rx Instructions .Route 07/03/22 10/12/22 Unknown Rx .COMPLEX #90 tabs insulin glargine 100 unit/mL (3 20 unit (0.2 mL) SUBCUT DAILY #15 07/05/22 10/12/22 Unknown Rx mL) subcutaneous pen (Lantus mL Solostar U-100 Insulin) spironolactone 50 1 tab PO DAILY #90 tabs 07/10/22 10/12/22 Unknown Rx mg-hydrochlorothiazide 50 mg tablet ezetimibe 10 mg tablet 10 mg PO DAILY #30 tabs 07/24/22 10/12/22 Unknown Rx AUTO CPAP machine and supplies #1 ea 08/09/22 Unknown Rx Allergies Allergy/AdvReac Type Severity Reaction Status Date / Time Penicillins Allergy Unknown Verified 07/20/22 15:35 [facility] Anesthesia Medical History CAD (coronary artery disease) Essential (primary) hypertension Hepatitis C Surgical History H/O vasectomy History of cholecystectomy History of quadruple bypass S/P coronary angiogram Family History Mother No problems noted. Grandfather Cancer Father Heart disease Lung disease Diabetes Myocardial infarction Grandmother Dementia Social History Smoking and tobacco status: never smoked Alcohol intake: former Adopted: No service: No History of recent travel: No Current gender identity: Male Data Anesthesia 10/12/22 11:45 10/12/22 11:45 Short CBC 10/12/22 Range/Units 11:45 WBC 11.0 H (4.0-10.0) 10^3/uL Hgb 15.6 (11.7-16.6) g/dL Hct 50.6 (42.0-52.0) % MCV 92.5 (80-94) fl Plt Count 233 (130-400) 10^3/cmm Neut % (Auto) 68.3 % Neut # (Auto) 7.52 (1.8-7.7) 10^3/uL BMP 10/12/22 11:45 Sodium 131 L Potassium 4.0 Chloride 94 L Carbon Dioxide 24 BUN 13 Creatinine 0.7 Glucose 188 H Calcium 9.3 Cardiac Studies: Echocardiogram 08/28/22
[2022-10-17] VITALS (8 sets, daily range): BP systolic 123–142; BP diastolic 75–87; PULSE 70–82; RESP 16–21; TEMP 36.1–36.6; O2SAT 94–96
--- NOTE | 2022-10-17 06:24 | P.HP_ITS ---
Providers/Chief Complaint Admitting Physician: Dr. Cardoso Primary Care Provider: Ramo Ferrell MD Chief Complaint: surgery History of Present Illness Miguelito Crespo Jr is a 56 year old male whom I originally saw in consultation on July 20 of last year upon referral for symptomatic painful sternal wires and a nonhealing lower one third sternal wound. He is status post CABG in September 15, 2021. Postoperative course was complicated by ventilatory dependence for about 2 weeks. 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 CT scan of the chest in April 19 the last year reveals a nonunion as well as a pacing wire sternal wire in the bed of the lower wound. He has been seen previously by his cardiac surgeon in [place] and no specific recommendations were made other than consideration for a pectoralis flap. I saw him originally in our [facility] wound clinic prior to his cardiac visit with me last June. He has 2 inferior wounds with intermittent bloody drainage. This does extend down to the sternum. Upon review of the CT scan there is a wire in the bed of the wound as well as a probable pacing wire just left of midline. There is also another wound slightly more superior there is not as prominent and there is a palpable sternal wire immediately beneath the skin. There is a third symptomatic wire in the manubrium which is palpable beneath the skin which she also desires to be removed due to pain with motion. Sternum has some motion with palpation though this is not great and most probably has fibrous union. He is a very active gentleman that works in the [employer] industry. I have previously discussed with him details of consideration for sternal wire removal as well as potential for catastrophic bleeding should there be injury to the heart. He states understanding. He states he has thought of this for quite some time but the discomfort is chronic and does affect his lifestyle. After previous considerations and conversations, he does wish to proceed with removal with the understanding of the potential for major bleeding or cardiac injury. Review of Systems Const: Denies: fever(s), chills or change in appetite Card: Reports: chest pain (With motion of arms and chest); Denies: palpitations or irregular heart rhythm Resp: Denies: dyspnea or productive cough GI: Denies: abdominal pain, nausea or vomiting Musc: Reports: back pain; Denies: neck pain Neuro: Denies: headache(s), numbness in extremities or weakness in extremities Psych: Denies: anxiety or depression Idris/Lymph: Denies: easy bruising Medications/Allergies Home Medications Medication Instructions Recorded Confirmed Last Taken Type melatonin 5 mg capsule 5 mg PO BEDTIME 10/25/20 10/17/22 1 Day Ago History ~10/16/22 acetaminophen 650 mg 650 mg PO Q12H PRN Pain 09/12/21 10/17/22 1 Day Ago History tablet,extended release (Tylenol ~10/16/22 Arthritis Pain) glucosamine sulfate 500 mg tablet 500 mg PO DAILY 09/12/21 10/17/22 1 Day Ago History (Glucosamine) ~10/16/22 lorazepam 0.5 mg tablet (Ativan) 0.5 mg PO DAILY PRN pt states this 09/12/21 10/17/22 Unknown History is an old rx he uses prn magnesium oxide 400 mg PO DAILY 09/12/21 10/17/22 1 Day Ago History ~10/16/22 multivitamin 1 tab PO QAM 09/12/21 10/17/22 1 Day Ago History ~10/16/22 omeprazole 20 mg capsule,delayed 20 mg PO QAM 09/12/21 10/17/22 1 Day Ago History release ~10/16/22 triamcinolone acetonide 0.5 % 1 applic topical DAILY PRN unknown 09/12/21 10/17/22 1 Day Ago History topical cream ~10/16/22 turmeric 400 mg capsule 400 mg PO DAILY 09/12/21 10/17/22 1 Day Ago History ~10/16/22 atorvastatin 80 mg tablet 80 mg PO DAILY #90 tabs 12/14/21 10/17/22 1 Day Ago Rx ~10/16/22 carvedilol 6.25 mg tablet 6.25 mg PO BID #180 tabs 12/14/21 10/17/22 1 Day Ago Rx ~10/16/22 tramadol 100 mg tablet 100 mg PO Q6H PRN pain #90 tabs 02/13/22 10/17/22 Unknown Rx aspirin 325 mg tablet 325 mg PO DAILY Chest Pain 04/24/22 10/17/22 1 Week Ago History ~10/10/22 omega-3 fatty acids 1,000 mg 1,000 mg PO DAILY 04/24/22 10/17/22 1 Day Ago History capsule ~10/16/22 montelukast 10 mg tablet See Rx Instructions .Route 07/03/22 10/17/22 1 Day Ago Rx .COMPLEX #90 tabs ~10/16/22 insulin glargine 100 unit/mL (3 20 unit (0.2 mL) SUBCUT DAILY #15 07/05/22 10/17/22 1 Day Ago Rx mL) subcutaneous pen (Lantus mL ~10/16/22 Solostar U-100 Insulin) spironolactone 50 1 tab PO DAILY #90 tabs 07/10/22 10/17/22 1 Day Ago Rx mg-hydrochlorothiazide 50 mg tablet ~10/16/22 ezetimibe 10 mg tablet 10 mg PO DAILY #30 tabs 07/24/22 10/17/22 1 Day Ago Rx ~10/16/22 AUTO CPAP machine and supplies #1 ea 08/09/22 Unknown Rx Allergies Allergy/AdvReac Type Severity Reaction Status Date / Time Penicillins Allergy Unknown Verified 10/17/22 06:02 PFSH Acute PFSH: Medical History CAD (coronary artery disease) Essential (primary) hypertension Hepatitis C Surgical History H/O vasectomy History of cholecystectomy History of quadruple bypass S/P coronary angiogram Family History Mother No problems noted. Grandfather Cancer Father Heart disease Lung disease Diabetes Myocardial infarction Grandmother Dementia Social History Smoking and tobacco status: never smoked Alcohol intake: former Adopted: No service: No History of recent travel: No Current gender identity: Male Vitals/I&O/Wt Last Vital Signs Temp 97.2 F L 10/17/22 06:05 Pulse 70 10/17/22 06:05 Resp 18 10/17/22 06:05 BP 133/79 10/17/22 06:05 Pulse Ox 96 10/17/22 06:05 O2 Del Method 10/17/22 06:05 Physical Exam Const: COMMON NORMALS: no acute distress and patient oriented x3; negative for average body habitus (Modestly obese) HENMT: COMMON NORMALS: normocephalic, atraumatic, hearing grossly normal bilaterally and external ears normal Neck/C-Spine: COMMON NORMALS: full ROM, no lymphadenopathy and No carotid bruits Chest: OTHER: There is modest motion with palpation which results in some discomfort. He has a palpable sternal wire beneath a wide scar in the manubrium which he desires removal. He has 2 openings in the mid and lower sternum with the more inferior wound being most prominent which has had intermittent drainage. Review of previous CT scan reveals sternal wires in the base of these wounds. I cannot see the sternal wire in the lower more prominent wound, though it is clearly demonstrated on CT scan from March of last year. Resp: COMMON NORMALS: normal respiratory effort, No retractions, No use of accessory muscles and clear to auscultation bilaterally Cardio: COMMON NORMALS: regular rate, regular rhythm, S1 normal heart sound present and No murmurs present (Cardio) GI: COMMON NORMALS: Normal to inspection, nondistended, normoactive bowel sounds present INSPECTION: Yes central obesity Extremity: COMMON NORMALS: normal to inspection and no clubbing, cyanosis or edema Neuro: COMMON NORMALS: patient oriented x3, moves all extremities, no focal motor deficits and no sensory deficits noted Psych: COMMON NORMALS: mental status grossly normal and Normal thought process present Data 10/12/22 11:45 10/12/22 11:45 A&P Assessment and plan (1) Dehiscence of closure of sternum or sternotomy: 56-year-old gentleman with status post CABG with protracted postop course and subsequent sternal dehiscence with 2 lower sternal wounds which have not healed completely. Pectoralis flap was offered by his surgeon in [place] though he does not desire this. We have discussed previously consideration for attempting sternal wire removal with the understanding of the potential for major he morrhage or major injury to the heart which could result in . He states understanding. He does wish to proceed. He also understands it we do not have options for cardiopulmonary bypass at [facility]. We have had lengthy conversation previously both in the [facility] wound care clinic as well as on our [facility] clinic in June. He does wish to proceed with surgery. I did discuss frankly him that if I thought expiration of certain portions of the wound were excessively hazardous that I may abort that portion of the procedure. He states understanding. If we are able to successfully remove the sternal wires, I cannot guarantee that his wounds would heal appropriately. He is aware. I have also discussed with him previously consideration for a TRAM flap, though he wished to avoid any type of muscle advancement at this time. Consents have been carefully reviewed with Mr. Crespo including the potential catastrophic risk as well as alternatives. He wishes to proceed with attempt at sternal wire removal at multiple levels. Attestations Medical Necessity Statement*: Sternal wound dehiscence status post CABG with painful sternal wires and nonhealing wounds Coding Level of Care Code Acute Code for [facility] Fwd Diagnoses Dehiscence of closure of sternum or sternotomy T81.32XA
[2022-10-17] MEDS: sodium chloride 0.9% 1,000 ML 30 ML IV (06:27)
[2022-10-17] MEDS: vancomycin 1,500 MG/300 ML PIGGYBACK 200 MG IV (06:28)
[2022-10-17 06:29] LABS: Glucose Point of Care 163 mg/dL (70-110)
--- NOTE | 2022-10-17 06:49 | P.ANESUD_ITS ---
Pre-Anesthetic Update Pre-Anesthetic Assessment: Date of Surgery/Procedure: 10/17/22 Preop Sarah gnosis: Sternal wound/dehiscensce/symptomatic sternal wire Proposed Procedure: Operation Date: 10/17/22 07:00 Proposed Procedures p Sternal Wire Removal 34272,T81.32XA(Not Applicable) - Job Cardoso MD Any changes to Pre-Anesthetic Assessment?: No Last Intake: Intake Last Liquid Date 10/16/22 Last Liquid Time 22:00 Last Solid Date 10/16/22 Last Solid Time 20:00 Vitals: Temperature 97.2 F L 10/17/22 06:05 Temperature Source Temporal Artery S can 10/17/22 06:05 Pulse Rate 70 10/17/22 06:05 Pulse Rhythm 10/17/22 06:05 Pulse Strength 3+ Normal 10/17/22 06:05 Respiratory Rate 18 10/17/22 06:05 Blood Pressure 133/79 10/17/22 06:05 Blood Pressure Franca n 97 10/17/22 06:05 Pulse Oximetry 96 10/17/22 06:05 Oxygen Delivery Me thod 10/17/22 06:05 Exam: Pre-Anes Outpt Exam: alert, oriented x 3, clear to auscultation bilaterally and regular rate & rhythm Cardiac Studies: Echocardiogram 08/28/22
[2022-10-17 07:48] LABS: Add Urine Microscopic? YES; Bilirubin Urine Neg (Negative); Blood Urine 2+ (Negative); Glucose Urine UA Norm (Normal); Ketones Urine Negative (Negative); Leukocyte Esterase Urine Negative (Negative); Nitrate Urine Negative (Negative); Protein Urine Neg (Negative); Urine Appearance Clear (CLEAR); Urine Color Straw (Yellow); Urobilinogen Urine Norm (Negative); pH Urine 5 (5-7)
[2022-10-17 07:49] LABS: Add Urine Culture? No; Bacteria Urine TRACE /hpf; Squamous Epithelial Cell Urine 0-4 /hpf (0-5); WBC Urine 0-4 /hpf (0-5)
[2022-10-17] MEDS: vancomycin 1,000 MG SDV 1000 MG IRRIGATION (08:03)
[2022-10-17] MEDS: neomycin-poly-bacitracin oint 28 gm 1 APPLIC TOPICAL (08:58)
--- NOTE | 2022-10-17 09:12 | P.OP_ITS ---
Operative Report Date of procedure: October 17, 2022 Pre-op diagnosis: Preop Diagnosis Sternal wound/dehiscensce/symptomatic sternal wire Post-op diagnosis: same Procedure done: Sternal incision/wound exploration and removal of symptomatic sternal wires. Removal of retained pacing wires Specimens removed/disposition: Retrieve sternal wires and pacing wires Surgeon: Job Cardoso Anesthesia: General Estimated blood loss (mL): 50 Complications: None Condition: stable Disposition: PACU Brief History: Mr. Crespo is a 56-year-old gentleman status post CABG September 15, 2021. He developed sternal wound dehiscence and required prolonged dilatory support for 2 weeks relief postop. He has draining wounds to the bottom of his sternotomy scar which have been present since early after surgery. He was evaluated by his original surgeon who recommended a pectoralis flap. Mr. Crespo sought a second opinion and we offered consideration for attempted sternal wire removal with understanding of potential catastrophic bleeding. He agreed. Appropriate consents have been reviewed and signed. Procedure: He was taken operating room theater where appropriate invasive lines were placed. He underwent general endotracheal anesthesia. His entire anterior chest wall was sterilely prepped and draped. Initially had a symptomatic wire in the manubrium through a previously closed incision with a wide scar. 1% lidocaine was infiltrated in this area was opened with a #10 scalpel blade down to the sternal table where the wire was identified dissected free, transected, and then removed. This area was irrigated with antibiotic solution and closed in multiple layers of Vicryl suture with the skin being closed in the subcuticular manner. This area was then carefully covered we then proceeded lower to 2 wounds in the lower aspect of the sternal scar. The most inferior wound is minimally symptomatic and has had the most drainage with have evidence of granulation tissue in the base of the wound consistent with chronic inflammation and potential infection. I initially opened up with a #10 scalpel blade the area between these 2 open wounds thereby bring them into continuity. The more superior wound area underwent careful exploration where sternal wire was identified transected and then removed. This was a single pass straight wire as compared to the [id number] wire removed more superiorly. Dissection was then continued down more inferiorly to the more problematic area where the sternal wire appeared to have migrated beneath the sternal table. Very meticulous and careful dissection was then performed to find the end of this wire which was then retrieved. In this process I was able to identify the patient wire which we are able to remove through the more lateral puncture wound. The sternal wire was removed intact and had several twist at the cardiac end. Careful dissection was then continued until we were able to transect the sternal wire and this deep wound and very carefully remove it intact without substantial bleeding. I elected to perform no further exploration or debridement as I thought this was very near the pericardium. Wounds were irrigated with antibiotic solution and this lower wound was packed wet-to-dry. More superior wound was closed in subcuticular fashion with clean instruments. Sterile dressings were applied. Mr. Crespo was awakened from general anesthesia, extubated, and taken to the postoperative care unit in stable condition. I will plan to continue oral antibiotics for the next week along with wet-to-dry dressing changes to his more inferior wound. I will schedule f ollow-up in the wound care services department.
[2022-10-17] MEDS: HYDROcodone-acetaminophen 5-325 mg Tablet 1 TAB PO (10:15)
--- NOTE | 2022-10-17 12:28 | ANE.PACU2 ---
Inpatient post-anesthesia follow up: Airway intact: Yes Vital signs: Temperature 97 F Pulse Rate 74 Respiratory Rate 18 Blood Pressure 130/82 Pulse Oximetry 94 Oxygen Delivery Me thod Room Air Oxygen Flow Rate 6 Fraction of Inspir ed Oxygen Hydration adequate: Yes Nausea and vomiting: No Pain level: 1 Mental status: Baseline
--- NOTE | 2022-10-18 12:37 | PC.NURSE ---
follow up phone call done. pt spouse states that the pharmacy was unable to fill script for antibiotic . i called pharmacy to see what was needed and contacted dr. smith for clarification . [facility] pharmacy contacted with clarification for Bactrim ds one tab bid per dr. smith.
== END 2022-10-17 10:30 | disposition home or self-care (01) ==
PROVIDERS: Anesthesiology; PCP Internal Medicine; Visit Provider Thoracic Surgery (Cardiothoracic Vascular Surgery)
PROC: (CPT 20670; principal; 2022-10-17 07:00)
DX: T81.32XA Disruption of internal operation (surgical) wound, not elsewhere classified, initial encounter (principal); Y83.8 Other surgical procedures as the cause of abnormal reaction of the patient, or of later complication, without mention of misadventure at the time of the procedure; J44.9 Chronic obstructive pulmonary disease, unspecified; G47.30 Sleep apnea, unspecified; I25.10 Atherosclerotic heart disease of native coronary artery without angina pectoris; Z95.1 Presence of aortocoronary bypass graft; I10 Essential (primary) hypertension; I25.2 Old myocardial infarction; K21.9 Gastro-esophageal reflux disease without esophagitis; E11.9 Type 2 diabetes mellitus without complications; E78.5 Hyperlipidemia, unspecified; E66.01 Morbid (severe) obesity due to excess calories; Z68.39 Body mass index [BMI] 39.0-39.9, adult; Z79.4 Long term (current) use of insulin; Z86.19 Personal history of other infectious and parasitic diseases
CPT/HCPCS: 20670; 36415; 36416; 80048; 81001; 82962; 85025; 86850; 86900; 86920; 88300; 93005; J2370; J2405; J2704; J2710; J3010; J3370; J3490; J7030

== ENCOUNTER 2022-11-06 10:26 | Outpatient (CLI) | payer MEDICAID, SELFPAY ==
--- NOTE | 2022-11-06 10:43 | XRR_ITS ---
PROCEDURE INFORMATION: Exam: XR Chest Exam date and time: 11/06/2022 10:48 AM Age: 57 years old Clinical indication: Other: Non-healing ulcer S/P heart surgery; Prior surgery; Surgery type: Heart surgyer TECHNIQUE: Imaging protocol: Radiologic exam of the chest. Views: 2 views. COMPARISON: CR XR chest 2V* [id number] 07/10/2022 3:42 PM FINDINGS: Lungs: There is left lower lobe atelectasis No consolidation. Pleural spaces: Unremarkable. No pleural effusion. No pneumothorax. Heart/Mediastinum: Unremarkable. No cardiomegaly. Bones/joints: Metallic sternotomy wires are seen. XR/XR chest 2V* [id number] IMPRESSION: 1. No acute findings. 2. Left lower lobe atelectasis 3. Metallic sternotomy wires are present
== END 2022-11-06 10:27 | disposition home or self-care (01) ==
PROVIDERS: PCP Internal Medicine; Visit Provider Thoracic Surgery (Cardiothoracic Vascular Surgery)
DX: T81.32XD Disruption of internal operation (surgical) wound, not elsewhere classified, subsequent encounter (principal); J98.11 Atelectasis; X58.XXXD Exposure to other specified factors, subsequent encounter
CPT/HCPCS: 71046